=== PATIENT | female | born 2000 | race Caucasian/White ===

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

== ENCOUNTER 2018-12-30 16:30 | Emergency (ER) | payer OTHER ==
[2018-12-30] MEDS ORDERED: SODIUM CHLORIDE 0.9% 1,000 ML IV ONE (18:06)
[2018-12-30] MEDS ORDERED: METOCLOPRAMIDE 5 MG/ML 2 ML VIAL IVP STA (18:07)
[2018-12-30] MEDS ORDERED: SODIUM CHLORIDE 0.9% 500 ML 500 ML IV ONE (18:10)
--- NOTE | 2018-12-30 18:10 | ED ---
Nausea/Vomiting/Diarrhea HPI - General Chief complaint: Nausea/Vomiting/Diarrhea Stated complaint: vomiting/10 wks preg Time Seen by Provider: 12/30/18 17:54 Source: patient Mode of arrival: ambulatory Limitations: no limitations - History of Present Illness Initial comments: 18-year-old female no past medical history with current twin at 10 weeks presenting today for chief complaint of uncontrolled vomiting and stabbing lower pelvic pain. Pt states she has had significant morning sickness since the time she found out she was . Patient states it has been increased for the past day. She states that earlier today she has felt occasional sharp pain in the lower abdomen. No vaginal bleeding, discharge, dysuria urgency frequency hematuria back pain chest pain dyspnea dyspnea on exertion or leg swelling. Upon arrival pt HR elevated remaining VS WNL. - Related Data Home Medications Medication Instructions Recorded Confirmed Ovv-[id number] Acid 1 cap PO DAILY 12/30/18 12/30/18 [-U Capsule (formulary)] Previous Rx's Medication Instructions Recorded Metoclopramide HCl [Reglan] 5 mg PO DAILY PRN 4 Days #4 tablet 12/30/18 Allergies Allergy/AdvReac Type Severity Reaction Status Date / Time coconut AdvReac Nausea Verified 12/30/18 18:19 milk AdvReac Nausea & Verified 12/30/18 18:19 Vomiting & Diarrhea Review of Systems ROS Statement: Those systems with pertinent positive or pertinent negative responses have been documented in the HPI. ROS Other: All systems not noted in ROS Statement are negative. Past Medical History Past Medical History: GERD/Reflux Additional Past Medical History / Comment(s): OB history: This is her first and she started care with Dr Mata at 25 weeks. O+, abs neg, Rub Imm, RPR NR, Hep B neg. abnormal 1hr, normal 3hr GTT. most recent US last week showed baby to be over 10 pounds and AMANDA 27cm. She refused C/S that day but agreed to one being scheduled. History of Any Multi-Drug Resistant Organisms: None Reported Past Surgical History: Section Past Anesthesia/Blood Transfusion Reactions: No Reported Reaction Past Psychological History: No Psychological Hx Reported Smoking Status: Never smoker Past Alcohol Use History: None Reported Past Drug Use History: None Reported - Past Family History Sister(s) Family Medical History: Blood Disorder Additional Family Medical History / Comment(s): Patient's mother states her sister has a history of blood clots-specifics unknown. General Exam - General Exam Comments Initial Comments: General: The patient is awake and alert, in no distress, and does not appear acutely ill. Eye: Pupils are equal, round and reactive to light, extra-ocular movements are intact. No nystagmus. There is normal conjunctiva bilaterally. No signs of icterus. Ears, nose, mouth and throat: There are moist mucous membranes and no oral lesions. Neck: The neck is supple, there is no tenderness or JVD. Cardiovascular: There is a regular rate and rhythm. No murmur, rub or gallop is appreciated. Respiratory: Lungs are clear to auscultation, respirations are non-labored, breath sounds are equal. No wheezes, stridor, rales, or rhonchi. Gastrointestinal: Soft, non-distended, non-tender abdomen without masses or organomegaly noted. There is no rebound or guarding present. No CVA tenderness. Bowel sounds are unremarkable. Musculoskeletal: Normal ROM, no tenderness. Strength 5/5. Sensation intact. Pulses equal bilaterally 2+. Neurological: A&O x 3. CN II-XII intact, There are no obvious motor or sensory deficits. Coordination appears grossly intact. Speech is normal. Skin: Skin is warm and dry and no rashes or lesions are noted. Psychiatric: Cooperative, appropriate mood & affect, normal judgment. Limitations: no limitations Course Vital Signs 12/30/18 17:27 Temperature 98.5 F Pulse Rate 122 H Respiratory 20 Rate Blood Pressure 129/83 O2 Sat by Pulse 98 Oximetry Medical Decision Making - Medical Decision Making 18-year-old female presenting for vomiting and primed after vomiting should sharp pains in her lower abdomen. Patient states this has since subsided. Benign abdominal exam. Patient denies vaginal bleeding. Ultrasound revealed viable intrauterine twin gestation with heart rate within normal limits and no complicating process seen. Pt has +4 ketones in urine. pt given reglan, pt tolerating oral intake in the ER, drinking a full 12 oz and denies nausea. No episodes of emesis. Pt requesting discharge. Pt given 1L of fluid. Pt refuses to stay for total 1500L bolus ordered. I discussed case reviewing labs with attending Dr. Echols who is agreeable with discharge and care plan. She was given prescription for Reglan Fortabs told to be taken daily for nausea. Patient is very strict return parameters for any persistent vomiting or decreased oral intake or decreased urination. She verbalized understanding. Patient discharged. - Lab Data Result diagrams: 12/30/18 18:50 12/30/18 18:50 Lab Results 12/30/18 12/30/18 12/30/18 Range/Units 18:50 18:50 18:50 WBC (4.0-11.0) k/uL RBC (3.80-5.40) m/uL Hgb (11.4-16.0) gm/dL Hct (34.0-46.0) % MCV (80.0-100.0) fL MCH (25.0-35.0) pg MCHC (31.0-37.0) g/dL RDW (11.5-15.5) % Plt Count (150-450) k/uL Neutrophils % % Lymphocytes % % Monocytes % % Eosinophils % % Basophils % % Neutrophils # (1.3-7.7) k/uL Lymphocytes # (1.0-4.8) k/uL Monocytes # (0-1.0) k/uL Eosinophils # (0-0.7) k/uL Basophils # (0-0.2) k/uL Sodium 140 (137-145) mmol/L Potassium 3.9 (3.5-5.1) mmol/L Chloride 108 H (98-107) mmol/L Carbon Dioxide 19 L (22-30) mmol/L Anion Gap 13 mmol/L BUN 8 (7-17) mg/dL Creatinine 0.42 L (0.52-1.04) mg/dL Est GFR (CKD-EPI)AfAm >90 (>60 ml/min/1.73 sqM) Est GFR (CKD-EPI)NonAf >90 (>60 ml/min/1.73 sqM) Glucose 92 (74-99) mg/dL Calcium 9.8 (8.4-10.2) mg/dL Total Bilirubin 0.5 (0.2-1.3) mg/dL AST 15 (14-36) U/L ALT 27 (9-52) U/L Alkaline Phosphatase 108 (38-126) U/L Total Protein 7.4 (6.3-8.2) g/dL Albumin 4.3 (3.5-5.0) g/dL Urine Color Yellow Urine Appearance Clear (Clear) Urine pH 6.0 (5.0-8.0) Ur Specific [place] 1.037 H (1.001-1.035) Urine Protein 1+ H (Negative) Urine Glucose (UA) Negative (Negative) Urine Ketones 4+ H (Negative) Urine Blood Negative (Negative) Urine Nitrite Negative (Negative) Urine Bilirubin Negative (Negative) Urine Urobilinogen 2.0 (<2.0) mg/dL Ur Leukocyte Esterase Negative (Negative) Urine RBC 1 (0-5) /hpf Urine WBC 1 (0-5) /hpf Ur Squamous Epith Cells 1 (0-4) /hpf Urine Bacteria Rare H (None) /hpf Urine Mucus Occasional H (None) /hpf Blood Type O Positive Blood Type Recheck No 12/30/18 Range/Units 18:50 WBC 5.1 (4.0-11.0) k/uL RBC 5.67 H (3.80-5.40) m/uL Hgb 14.4 (11.4-16.0) gm/dL Hct 44.1 (34.0-46.0) % MCV 77.7 L (80.0-100.0) fL MCH 25.4 (25.0-35.0) pg MCHC 32.6 (31.0-37.0) g/dL RDW 15.3 (11.5-15.5) % Plt Count 246 (150-450) k/uL Neutrophils % 63 % Lymphocytes % 29 % Monocytes % 4 % Eosinophils % 1 % Basophils % 0 % Neutrophils # 3.2 (1.3-7.7) k/uL Lymphocytes # 1.5 (1.0-4.8) k/uL Monocytes # 0.2 (0-1.0) k/uL Eosinophils # 0.1 (0-0.7) k/uL Basophils # 0.0 (0-0.2) k/uL Sodium (137-145) mmol/L Potassium (3.5-5.1) mmol/L Chloride (98-107) mmol/L Carbon Dioxide (22-30) mmol/L Anion Gap mmol/L BUN (7-17) mg/dL Creatinine (0.52-1.04) mg/dL Est GFR (CKD-EPI)AfAm (>60 ml/min/1.73 sqM) Est GFR (CKD-EPI)NonAf (>60 ml/min/1.73 sqM) Glucose (74-99) mg/dL Calcium (8.4-10.2) mg/dL Total Bilirubin (0.2-1.3) mg/dL AST (14-36) U/L ALT (9-52) U/L Alkaline Phosphatase (38-126) U/L Total Protein (6.3-8.2) g/dL Albumin (3.5-5.0) g/dL Urine Color Urine Appearance (Clear) Urine pH (5.0-8.0) Ur Specific [place] (1.001-1.035) Urine Protein (Negative) Urine Glucose (UA) (Negative) Urine Ketones (Negative) Urine Blood (Negative) Urine Nitrite (Negative) Urine Bilirubin (Negative) Urine Urobilinogen (<2.0) mg/dL Ur Leukocyte Esterase (Negative) Urine RBC (0-5) /hpf Urine WBC (0-5) /hpf Ur Squamous Epith Cells (0-4) /hpf Urine Bacteria (None) /hpf Urine Mucus (None) /hpf Blood Type Blood Type Recheck Disposition Clinical Impression: Vomiting during , Dehydration Disposition: HOME SELF-CARE Condition: Good Instructions (If sedation given, give patient instructions): Nausea and Vomiting in (ED) Additional Instructions: Please follow-up with OBGYN next week as scheduled. Please return to emergency room if the symptoms increase or worsen or for any other concerns. Prescriptions: Metoclopramide HCl [Reglan] 5 mg PO DAILY PRN 4 Days #4 tablet PRN Reason: Nausea Is patient prescribed a controlled substance at d/c from ED?: No Referrals: None,Stated [Primary Care Provider] - 1-2 days Ghassan Mata DO [Doctor of Osteopathic Medicine] - 1-2 days Time of Disposition: 20:02
[2018-12-30 19:05] LABS: Basophils % (A) 0 %; Eosinophils # (A) 0.1 k/uL (0-0.7); Eosinophils % (A) 1 %; HCT 44.1 % (34.0-46.0); HGB 14.4 gm/dL (11.4-16.0); Lymphocytes # (A) 1.5 k/uL (1.0-4.8); Lymphocytes % (A) 29 %; MCH 25.4 pg (25.0-35.0); MCHC 32.6 g/dL (31.0-37.0); MCV 77.7 fL (80.0-100.0); Mean Platelet Volume 7.7; Monocytes # (A) 0.2 k/uL (0-1.0); Monocytes % (A) 4 %; Neutrophils # (A) 3.2 k/uL (1.3-7.7); Neutrophils % (A) 63 %; Platelet Count 246 k/uL (150-450); RBC 5.67 m/uL (3.80-5.40); RDW 15.3 % (11.5-15.5); WBC 5.1 k/uL (4.0-11.0)
[2018-12-30 19:07] LABS: Appearance,Urine Clear (Clear); Bacteria,Urine Rare /hpf; Bilirubin,Urine Negative (Negative); Blood,Urine Negative (Negative); Color,Urine Yellow; Glucose,Urine (UA) Negative (Negative); Ketones,Urine 4+ (Negative); Leukocyte Esterase,Urine Negative (Negative); Mucus,Urine Occasional /hpf; Nitrite,Urine Negative (Negative); Protein,Urine 1+ (Negative); RBC,Urine 1 /hpf (0-5); Specific Gravity,Urine 1.037 (1.001-1.035); Squamous Epithelial Cell,Urine 1 /hpf (0-4); WBC,Urine 1 /hpf (0-5)
[2018-12-30 19:10] LABS: ALT 27 U/L (9-52); AST 15 U/L (14-36); Albumin 4.3 g/dL (3.5-5.0); Alkaline Phosphatase 108 U/L (38-126); Anion Gap 13 mmol/L; Blood Urea Nitrogen 8 mg/dL (7-17); Calcium 9.8 mg/dL (8.4-10.2); Carbon Dioxide 19 mmol/L (22-30); Chloride 108 mmol/L (98-107); Glucose 92 mg/dL (74-99); Potassium 3.9 mmol/L (3.5-5.1); Sodium 140 mmol/L (137-145); Total Bilirubin 0.5 mg/dL (0.2-1.3); Total Protein 7.4 g/dL (6.3-8.2)
--- NOTE | 2018-12-30 19:46 | US ---
EXAMINATION TYPE: US OB <= 14 wk twins DATE OF EXAM: 12/30/2018 COMPARISON: NONE CLINICAL HISTORY: pain. Vomiting. EXAM PERFORMED: Transabdominal (TA) EXAM MEASUREMENTS: GESTATIONAL AGE / DATING Physician Established: (10 weeks/3 days) EDC: 07/25/2019 Dates by LMP: (10 weeks/3 days) EDC: 07/25/2019 Dates by First Scan: No previous this is first scan Dates by Current Scan for Baby A: (10 weeks/0 days) EDC: 07/28/2019 Dates by Current Scan for Baby B: ( 9 weeks/6 days) EDC: 07/29/2019 MATERNAL ANATOMY Uterus: 12.1 x 6.2 x 8.0 cm Right Ovary: 3.3 x 1.6 x 2.3 cm Left Ovary: 2.2 x 1.3 x 2.0 cm Post CDS / Adnexa: wnl Presence of free fluid: no Presence of corpus luteal cyst: no Presence of subchorionic bleed: no Presence of two separate gestational sacs: yes GESTATION / SURVEY TWIN A CRL: 3.12cm (10wks/0days) Yolk Sac (normal less than 6mm): 4mm Heart Rate: 176 bpm Rhythm: Normal IUP: Viable IUP TWIN B CRL: 3.0cm 9(wks/6days) Heart Rate: 165 bpm Rhythm: Normal IUP: Viable IUP IMPRESSION: The ultrasound gestational age is 10 weeks. Twin . No complicating process seen. There is a thick septum the fetuses.
[2018-12-30 20:59] VITALS: BP 122/80; PULSE 96; RESP 18; TEMP 98.1
== END 2018-12-30 20:58 | disposition home or self-care (01) ==
LOC: EC 16:30
DX: O21.9 Vomiting of pregnancy, unspecified (principal); O99.281 Endocrine, nutritional and metabolic diseases complicating pregnancy, first trimester; O30.001 Twin pregnancy, unspecified number of placenta and unspecified number of amniotic sacs, first trimester; Z91.011 Allergy to milk products; Z91.018 Allergy to other foods; Z3A.10 10 weeks gestation of pregnancy
CPT/HCPCS: 36415; 86900; 86901; 80053; 85025; 81001; 84702; 76801; 76802; 99284; 96374; 96361; J2765

== ENCOUNTER → 2019-02-01 | Outpatient (CLI) | payer OTHER ==
[2019-02-01 15:52] LABS: Hemoglobin A1C 5.3 % (4.0-6.0)
== END | disposition home or self-care (01) ==
LOC: LABWHC1 09:54
PROVIDERS: ATTEND Obstetrics & Gynecology
DX: O24.419 Gestational diabetes mellitus in pregnancy, unspecified control (principal); Z3A.00 Weeks of gestation of pregnancy not specified
CPT/HCPCS: 36415; 82950; 83036

== ENCOUNTER 2019-04-15 13:51 | Outpatient (CLI) | payer OTHER ==
[2019-04-15 14:58] VITALS: BP 130/66; PULSE 99; RESP 16; TEMP 98.1
--- NOTE | 2019-04-27 08:42 | P.MSEPDOC ---
Presenting Problems - Arrival Data Date of Arrival on Unit: 04/15/19 Time of Arrival on Unit: 14:51 Mode of Transport: Ambulatory - Complaint OB-Reason for Admission/Chief Complaint: Other Comment: dull pain scale of 2 Medical History - Information : 2 Para: 1 Term: 1 : 1 Abortions: Spontaneous or Elective: 0 Number of Living Children: 1 - History Complications: Multiple Review of Systems - Review of Systems Constitutional: No problems Breast: No problems ENT: No problems Cardiovascular: No problems Respiratory: No problems Gastrointestinal: No problems Genitourinary: No problems Musculoskeletal: No problems Neurological: No problems Skin: No problems Vital Signs - Temperature Temperature: 98.1 F Temperature Source: Oral - Pulse Apical Pulse Rate: 99 Pulse Assessment Method: Auscultation - Respirations Respiratory Rate: 16 Oxygen Delivery Method: Room Air - Blood Pressure Left Arm Blood Pressure: 130/66 Blood Pressure Mean: 87 Blood Pressure Source: Automatic Cuff Medical Screen Scoring (Pre) - Cervical Exam Dilation: Exam Deferred Effacement: Exam Deferred Membranes: Intact - Uterine Contractions Frequency: N/A - Maternal Vital Signs Maternal Temperature: N/A Maternal Blood Pressure: N/A Signs of Preeclampsia: N/A Maternal Respirations: N/A - Maternal Trauma Maternal Trauma: N/A - Assessment - Baby A Baseline FHR: 140 Heart Rate - NICHD Category: Category I (Normal) = 0 - Assessment - Baby B Baseline FHR: 150 Heart Rate - NICHD Category: Category I (Normal) = 0 - Total Score - Baby A Total Score - Baby A: 0 - Total Score - Baby B Total Score - Baby B: 0 - Total Score - Baby C Total Score - Baby C: 0 - Level of Risk - Baby A Level of Risk - Baby A: Low (0-5) - Level of Risk - Baby B Level of Risk - Baby B: Low (0-5) - Level of Risk - Baby C Level of Risk - Baby C: Low (0-5) Physician Notification (Pre) - Physician Notified Physician Notified Date: 04/15/19 Physician Notified Time: 14:55 Physician/Practitioner Notifed:: dr pinzon New Order Received: Yes (pt to discharge home) - Notification Comment Comment: PT ASKING IF SHE CAN GO BOWLING TONIGHT ASKED DOCTOR. PT IS NOT TO BOWL IF SHE IS HAVING PAIN Disposition - Disposition OB Disposition: Discharge to home Discharge Date: 04/15/19 Discharge Time: 14:57 I agree with the RN Medical Screening Exam: Yes Risk & Benefit of care provided described in d/c instruction: Yes Diagnosis: RELATED CONDITIONS, UNSPECIFIED, SECOND TRIMESTER
== END 2019-04-15 14:58 | disposition home or self-care (01) ==
LOC: FBPOP 13:51
PROVIDERS: ATTEND Obstetrics & Gynecology
DX: O26.92 Pregnancy related conditions, unspecified, second trimester (principal); Z3A.00 Weeks of gestation of pregnancy not specified
CPT/HCPCS: 99213

== ENCOUNTER 2019-05-30 12:15 | Outpatient (CLI) | payer OTHER | END 2019-05-30 12:55 | disposition home or self-care (01) | LOC: FBPOP 12:15 | PROVIDERS: ATTEND Obstetrics & Gynecology | DX: O30.003 Twin pregnancy, unspecified number of placenta and unspecified number of amniotic sacs, third trimester (principal); Z3A.32 32 weeks gestation of pregnancy | CPT/HCPCS: 99213 ==

== ENCOUNTER 2019-06-07 18:00 | Outpatient (CLI) | payer OTHER ==
[2019-06-07 19:26] VITALS: BP 131/71; PULSE 112; RESP 15; TEMP 97
--- NOTE | 2019-06-07 20:20 | P.MSEPDOC ---
Presenting Problems - Arrival Data Date of Arrival on Unit: 06/07/19 Time of Arrival on Unit: 18:00 Mode of Transport: Ambulatory - Complaint OB-Reason for Admission/Chief Complaint: NST Medical History - Information : 2 Para: 1 Term: 1 : 0 Abortions: Spontaneous or Elective: 0 Number of Living Children: 1 - Gestational Age Gestational Age by ILSA (wks/days): 33 Weeks and 1 Days - History Complications: Multiple Review of Systems - Review of Systems Constitutional: No problems Breast: No problems ENT: No problems Cardiovascular: No problems Respiratory: No problems Gastrointestinal: No problems Genitourinary: No problems Musculoskeletal: No problems Neurological: No problems Skin: No problems Vital Signs - Temperature Temperature: 97 F Temperature Source: Temporal Artery Scan - Pulse Brachial Pulse Rate: 112 Pulse Assessment Method: Automatic Cuff - Respirations Respiratory Rate: 15 Oxygen Delivery Method: Room Air - Blood Pressure Right Arm Sitting Blood Pressure: 131/71 Blood Pressure Mean: 91 Blood Pressure Source: Automatic Cuff Medical Screen Scoring (Pre) - Cervical Exam Dilation: 0 cm = 0 Membranes: Intact - Uterine Contractions Frequency: > 5 minutes apart = 1 Duration: > 40 seconds = 2 Intensity: N/A - Maternal Vital Signs Maternal Temperature: N/A Maternal Blood Pressure: N/A Signs of Preeclampsia: N/A Maternal Respirations: N/A - Maternal Trauma Maternal Trauma: N/A - Assessment - Baby A Baseline FHR: 145 Heart Rate - NICHD Category: Category I (Normal) = 0 NST: Reactive Position: N/A Station: N/A - Total Score - Baby A Total Score - Baby A: 3 - Total Score - Baby B Total Score - Baby B: 3 - Total Score - Baby C Total Score - Baby C: 3 - Level of Risk - Baby A Level of Risk - Baby A: Low (0-5) - Level of Risk - Baby B Level of Risk - Baby B: Low (0-5) - Level of Risk - Baby C Level of Risk - Baby C: Low (0-5) Physician Notification (Pre) - Physician Notified Physician Notified Date: 06/07/19 Physician Notified Time: 19:10 Spoke With: Dr Roberts New Order Received: Yes - Notification Comment Comment: reported reactive NST for Baby A and Baby B, pt is having contx. orders received to collect FFN and check cervix per t.oHero Roberts. pt is passed off to. Winston Garcia RN for care I agree with the RN Medical Screening Exam: Yes Risk & Benefit of care provided described in d/c instruction: Yes Diagnosis: LABOR WITHOUT DELIVERY, UNSPECIFIED TRIMESTER (This patient presented to labor and delivery triage for a weekly nonstress test. Patient is having a nonstress test for twin gestation. Evaluation here shows a reactive nonstress test however patient was having contractions which were not perceivable to the patient. Cervix is closed. fibronectin is pending at this time. Was prolonged observation patient is having infrequent contractions which she does not perceive. Plan at this time's check a fibronectin. If the fibronectin is negative patient be discharged home she does have a follow-up appointment tomorrow with Dr. Patricio. She was given directions to call or return if she has greater than 6 painful contractions and hour, decreased movement, or other concerns. At this time there is no evidence of labor.)
== END 2019-06-07 20:30 | disposition home or self-care (01) ==
LOC: FBPOP 18:00
PROVIDERS: ATTEND Obstetrics & Gynecology
DX: O60.03 Preterm labor without delivery, third trimester (principal); Z3A.33 33 weeks gestation of pregnancy
CPT/HCPCS: 59025; 82731; G0463; 99213

== ENCOUNTER 2019-06-15 11:55 | Outpatient (CLI) | payer OTHER ==
[2019-06-15 16:32] VITALS: BP 121/68; PULSE 106; RESP 16; TEMP 98.5
--- NOTE | 2019-06-18 12:05 | P.MSEPDOC ---
Presenting Problems - Arrival Data Date of Arrival on Unit: 06/15/19 Time of Arrival on Unit: 11:55 Mode of Transport: Ambulatory - Complaint OB-Reason for Admission/Chief Complaint: NST Comment: presents to triage with papter order for Twin NST (O30) after being seen in office. This is. the first of the Bi Weekly Nst's Medical History - Information : 2 Para: 1 Term: 1 : 0 Abortions: Spontaneous or Elective: 0 Number of Living Children: 1 - Gestational Age Gestational Age by ILSA (wks/days): 34 Weeks and 2 Days - History Complications: Multiple Review of Systems - Review of Systems Constitutional: No problems Breast: No problems ENT: No problems Cardiovascular: No problems Respiratory: No problems Gastrointestinal: No problems Genitourinary: No problems Musculoskeletal: No problems Neurological: No problems Skin: No problems Vital Signs - Temperature Temperature: 98.5 F Temperature Source: Oral - Pulse Right Pulse Rate: 106 Pulse Assessment Method: Automatic Cuff - Respirations Respiratory Rate: 16 Oxygen Delivery Method: Room Air O2 Sat by Pulse Oximetry: 98 - Blood Pressure Right Arm Blood Pressure: 121/68 Blood Pressure Mean: 85 Blood Pressure Source: Automatic Cuff Medical Screen Scoring (Pre) - Cervical Exam Dilation: Exam Deferred Effacement: Exam Deferred - Uterine Contractions Frequency: N/A Duration: N/A Intensity: N/A - Maternal Vital Signs Maternal Temperature: N/A Maternal Blood Pressure: N/A Signs of Preeclampsia: N/A Maternal Respirations: N/A - Maternal Trauma Maternal Trauma: N/A - Assessment - Baby A Baseline FHR: 150 Heart Rate - NICHD Category: Category I (Normal) = 0 NST: Reactive Position: N/A Station: N/A - Assessment - Baby B Baseline FHR: 155 Heart Rate - NICHD Category: Category I (Normal) = 0 NST: Reactive Position: N/A Station: N/A - Total Score - Baby A Total Score - Baby A: 0 - Total Score - Baby B Total Score - Baby B: 0 - Total Score - Baby C Total Score - Baby C: 0 - Level of Risk - Baby A Level of Risk - Baby A: Low (0-5) - Level of Risk - Baby B Level of Risk - Baby B: Low (0-5) - Level of Risk - Baby C Level of Risk - Baby C: Low (0-5) - Pain Assessment Pain Scale Used: Numeric (1 - 10) Pain Intensity: 0 Physician Notification (Pre) - Physician Notified Physician Notified Date: 06/15/19 Physician Notified Time: 13:05 Physician/Practitioner Notifed:: Dr Mata Spoke With: Dr Mata New Order Received: Yes (Discharge) - Notification Comment Comment: Dr Mata in department, shown efm. notified both babies' NSTs are reactive. and both are Cat !. Pt has no complaints. order for discharge received Disposition - Disposition OB Disposition: Discharge to home Discharge Date: 06/15/19 Discharge Time: 13:05 I agree with the RN Medical Screening Exam: Yes Risk & Benefit of care provided described in d/c instruction: Yes Diagnosis: RELATED CONDITIONS, UNSPECIFIED, THIRD TRIMESTER (twins)
== END 2019-06-15 13:05 | disposition home or self-care (01) ==
LOC: FBPOP 11:55
PROVIDERS: ATTEND Obstetrics & Gynecology
DX: O26.93 Pregnancy related conditions, unspecified, third trimester (principal); O30.003 Twin pregnancy, unspecified number of placenta and unspecified number of amniotic sacs, third trimester; Z3A.34 34 weeks gestation of pregnancy
CPT/HCPCS: 59025

== ENCOUNTER 2019-06-23 10:53 | Outpatient (CLI) | payer OTHER ==
[2019-06-23 12:14] VITALS: BP 128/65; PULSE 109; RESP 18; TEMP 97.3
== END 2019-06-23 11:50 | disposition home or self-care (01) ==
LOC: FBPOP 10:53
PROVIDERS: ATTEND Obstetrics & Gynecology
DX: O30.009 Twin pregnancy, unspecified number of placenta and unspecified number of amniotic sacs, unspecified trimester (principal); Z3A.00 Weeks of gestation of pregnancy not specified
CPT/HCPCS: 59025

== ENCOUNTER 2019-06-27 11:35 | Outpatient (CLI) | payer OTHER ==
[2019-06-27 13:53] VITALS: BP 119/69; PULSE 110; RESP 18; TEMP 98.4
--- NOTE | 2019-06-27 18:35 | P.MSEPDOC ---
Presenting Problems - Arrival Data Date of Arrival on Unit: 06/27/19 Time of Arrival on Unit: 11:30 Mode of Transport: Ambulatory - Complaint OB-Reason for Admission/Chief Complaint: NST Comment: twin gestation for repeat nst biweekly. Medical History - Information : 2 Para: 1 Term: 1 : 0 Abortions: Spontaneous or Elective: 0 Number of Living Children: 1 - Gestational Age Gestational Age by ILSA (wks/days): 35 Weeks and 6 Days - History Complications: Multiple Review of Systems - Review of Systems Constitutional: No problems Breast: No problems ENT: No problems Cardiovascular: No problems Respiratory: No problems Gastrointestinal: No problems Genitourinary: No problems Musculoskeletal: No problems Neurological: No problems Skin: No problems Vital Signs - Temperature Temperature: 98.4 F Temperature Source: Oral - Pulse Right Brachial Pulse Rate: 110 Pulse Assessment Method: Automatic Cuff - Respirations Respiratory Rate: 18 Oxygen Delivery Method: Room Air O2 Sat by Pulse Oximetry: 100 - Blood Pressure Right Arm Blood Pressure: 119/69 Blood Pressure Mean: 85 Blood Pressure Source: Automatic Cuff Medical Screen Scoring (Pre) - Cervical Exam Dilation: Exam Deferred Effacement: Exam Deferred - Uterine Contractions Frequency: N/A Duration: N/A Intensity: N/A - Maternal Vital Signs Maternal Temperature: N/A Maternal Blood Pressure: N/A Signs of Preeclampsia: N/A Maternal Respirations: N/A - Maternal Trauma Maternal Trauma: N/A - Assessment - Baby A Baseline FHR: 145 Heart Rate - NICHD Category: Category I (Normal) = 0 NST: Reactive Position: N/A Station: N/A - Assessment - Baby B Baseline FHR: 150 Heart Rate - NICHD Category: Category I (Normal) = 0 NST: Reactive Position: N/A Station: N/A - Total Score - Baby A Total Score - Baby A: 0 - Total Score - Baby B Total Score - Baby B: 0 - Total Score - Baby C Total Score - Baby C: 0 - Level of Risk - Baby A Level of Risk - Baby A: Low (0-5) - Level of Risk - Baby B Level of Risk - Baby B: Low (0-5) - Level of Risk - Baby C Level of Risk - Baby C: Low (0-5) Physician Notification (Pre) - Physician Notified Spoke With: elsie New Order Received: Yes - Notification Comment Comment: discharge home. keep next sched appt for nst and with dr at office. verb underst Disposition - Disposition OB Disposition: Discharge to home Discharge Date: 06/27/19 Discharge Time: 13:10 I agree with the RN Medical Screening Exam: Yes Risk & Benefit of care provided described in d/c instruction: Yes Diagnosis: TWIN , DICHORIONIC/DIAMNIOTIC, THIRD TRIMESTER
== END 2019-06-27 13:10 | disposition home or self-care (01) ==
LOC: FBPOP 11:35
PROVIDERS: ATTEND Obstetrics & Gynecology
DX: O30.043 Twin pregnancy, dichorionic/diamniotic, third trimester (principal); Z3A.35 35 weeks gestation of pregnancy
CPT/HCPCS: 59025

== ENCOUNTER 2019-06-29 17:33 | Outpatient (CLI) | payer OTHER ==
[2019-06-29 18:43] VITALS: BP 134/78; PULSE 110; RESP 16; TEMP 97.5
--- NOTE | 2019-06-29 18:59 | P.MSEPDOC ---
Presenting Problems - Arrival Data Date of Arrival on Unit: 06/29/19 Time of Arrival on Unit: 17:33 Mode of Transport: Ambulatory - Complaint OB-Reason for Admission/Chief Complaint: Possible Onset of Labor Comment: Contractions q8-12min apart for several days Medical History - Information : 2 Para: 1 Term: 1 : 0 Abortions: Spontaneous or Elective: 0 Number of Living Children: 1 - Gestational Age Gestational Age by ILSA (wks/days): 36 Weeks and 2 Days - History Complications: Multiple , Prior Review of Systems - Review of Systems Constitutional: No problems Breast: No problems ENT: No problems Cardiovascular: No problems Respiratory: No problems Gastrointestinal: No problems Genitourinary: No problems Musculoskeletal: No problems Neurological: No problems Skin: No problems Vital Signs - Temperature Temperature: 97.5 F Temperature Source: Temporal Artery Scan - Pulse Right Sitting Brachial Pulse Rate: 110 Pulse Assessment Method: Pulse Oximetry - Respirations Respiratory Rate: 16 Oxygen Delivery Method: Room Air O2 Sat by Pulse Oximetry: 99 - Blood Pressure Right Arm Sitting Blood Pressure: 134/78 Blood Pressure Mean: 96 Blood Pressure Source: Automatic Cuff Medical Screen Scoring (Pre) - Cervical Exam Dilation: 0 cm = 0 Membranes: Intact - Uterine Contractions Frequency: > 5 minutes apart = 1 Duration: > 40 seconds = 2 Intensity: N/A - Maternal Vital Signs Maternal Temperature: N/A Maternal Blood Pressure: N/A Signs of Preeclampsia: N/A Maternal Respirations: N/A - Maternal Trauma Maternal Trauma: N/A - Assessment - Baby A Baseline FHR: 150 Heart Rate - NICHD Category: Category I (Normal) = 0 NST: Reactive Position: N/A Station: N/A - Assessment - Baby B Baseline FHR: 140 Heart Rate - NICHD Category: Category I (Normal) = 0 NST: Reactive Position: N/A Station: N/A - Total Score - Baby A Total Score - Baby A: 3 - Total Score - Baby B Total Score - Baby B: 3 - Total Score - Baby C Total Score - Baby C: 3 - Level of Risk - Baby A Level of Risk - Baby A: Low (0-5) - Level of Risk - Baby B Level of Risk - Baby B: Low (0-5) - Level of Risk - Baby C Level of Risk - Baby C: Low (0-5) Physician Notification (Pre) - Physician Notified Physician Notified Date: 06/29/19 Physician Notified Time: 17:55 Physician/Practitioner Notifed:: Armando Spoke With: Armando New Order Received: Yes - Notification Comment Comment: Pt of Dr. Wilkinson, twin preg; , 36 2/7, c/o contractions x 3 days, q8-12min apart, not painful, SVE closed, reactive NST; scheduled for r c/s 07/06/19. Pt to be d/c home, triage d/c reviewed with pt and SO. Disposition - Disposition OB Disposition: Triage, Discharge to home, Written follow up instructions reviewed Discharge Date: 06/29/19 Discharge Time: 18:45 I agree with the RN Medical Screening Exam: Yes Risk & Benefit of care provided described in d/c instruction: Yes Diagnosis: FALSE LABOR BEFORE 37 COMPLETED WEEKS OF GEST, THIRD TRI (This patient is a pleasant 18-year-old 2 para 1 female 36-2/7 weeks gestation with known twin . Patient presents to labor and delivery with complaints of a headache. brought her and due to these concerns. She's had no blood pressure problems during this . She's been getting regular nonstress tests for testing. Patient scheduled for repeat section next week. Patient also having contractions but these are sporadic immigrant on for quite a while. heart tones are reactive without decelerations. Cervix is closed and thick. Blood pressures are normal. At thi s time there is no evidence of maternal or compromise. There is no evidence of hypertension. Patient is having good movement 2. At this point I have no concerns. I did recommend the patient return if she has regular painful contractions or concerns with movement, etc.)
== END 2019-06-29 18:45 | disposition home or self-care (01) ==
LOC: FBPOP 17:33
PROVIDERS: ATTEND Obstetrics & Gynecology
DX: O47.03 False labor before 37 completed weeks of gestation, third trimester (principal); Z3A.36 36 weeks gestation of pregnancy
CPT/HCPCS: 59025; G0463; 99213

== ENCOUNTER 2019-07-01 14:29 | Outpatient (CLI) | payer OTHER ==
[2019-07-01 15:51] VITALS: BP 130/76; PULSE 126; RESP 18; TEMP 97.9
--- NOTE | 2019-07-12 03:52 | P.MSEPDOC ---
Presenting Problems - Arrival Data Date of Arrival on Unit: 07/01/19 Time of Arrival on Unit: 14:32 Mode of Transport: Wheelchair - Complaint OB-Reason for Admission/Chief Complaint: Headache Comment: right side pain, headache, lightheaded. Medical History - Information : 2 Para: 1 Term: 1 : 0 Abortions: Spontaneous or Elective: 0 Number of Living Children: 1 - Gestational Age Gestational Age by ILSA (wks/days): 36 Weeks and 4 Days - History Complications: Multiple , Breech Review of Systems - Review of Systems Constitutional: No problems Breast: No problems ENT: No problems Cardiovascular: No problems Respiratory: No problems Gastrointestinal: No problems Genitourinary: No problems Musculoskeletal: No problems Neurological: No problems Skin: No problems Vital Signs - Temperature Temperature: 97.9 F Temperature Source: Temporal Artery Scan - Pulse Right Sitting Brachial Pulse Rate: 126 Pulse Assessment Method: Automatic Cuff - Respirations Respiratory Rate: 18 Oxygen Delivery Method: Room Air - Blood Pressure Right Arm Sitting Blood Pressure: 130/76 Blood Pressure Mean: 94 Blood Pressure Source: Automatic Cuff Medical Screen Scoring (Pre) - Cervical Exam Dilation: Exam Deferred Effacement: Exam Deferred - Uterine Contractions Frequency: > 5 minutes apart = 1 Duration: > 40 seconds = 2 Intensity: N/A - Maternal Vital Signs Maternal Temperature: N/A Maternal Blood Pressure: N/A Signs of Preeclampsia: Headache = 1 Maternal Respirations: N/A - Maternal Trauma Maternal Trauma: N/A - Assessment - Baby A Baseline FHR: 135 Heart Rate - NICHD Category: Category I (Normal) = 0 NST: Reactive Position: N/A Station: N/A - Assessment - Baby B Baseline FHR: 140 Heart Rate - NICHD Category: Category I (Normal) = 0 NST: Reactive Position: N/A Station: N/A - Total Score - Baby A Total Score - Baby A: 4 - Total Score - Baby B Total Score - Baby B: 4 - Total Score - Baby C Total Score - Baby C: 4 - Level of Risk - Baby A Level of Risk - Baby A: Low (0-5) - Level of Risk - Baby B Level of Risk - Baby B: Low (0-5) - Level of Risk - Baby C Level of Risk - Baby C: Low (0-5) Physician Notification (Pre) - Physician Notified Physician Notified Date: 07/01/19 Physician Notified Time: 15:45 New Order Received: Yes - Notification Comment Comment: dc home. follow up with dr Mata as scheduled. Disposition - Disposition OB Disposition: Discharge to home Discharge Date: 07/01/19 Discharge Time: 15:45 I agree with the RN Medical Screening Exam: Yes Physician's MSE Comment: Pt did not have elevated or low blood pressure. FHTs were category 1. She had not taken tylenol so that was suggested. Risk & Benefit of care provided described in d/c instruction: Yes Diagnosis: HEADACHE
== END 2019-07-01 15:52 | disposition home or self-care (01) ==
LOC: FBPOP 14:29
PROVIDERS: ATTEND Obstetrics & Gynecology
DX: R51 Headache (principal); Z33.1 Pregnant state, incidental; Z3A.36 36 weeks gestation of pregnancy
CPT/HCPCS: 59025; G0463; 99213

== ENCOUNTER 2019-07-06 09:48 | Inpatient (IN) | payer OTHER ==
[2019-07-06] MEDS ORDERED: OXYTOCIN 10 UNIT/ML 1 ML VIAL IM PRN (09:59)
[2019-07-06] MEDS ORDERED: TERBUTALINE 1 MG/ML VIAL SQ PRN (09:59)
[2019-07-06] MEDS ORDERED: CITRIC ACID-SODIUM CITRATE 15 ML CUP PO ONE (10:01)
[2019-07-06 10:16] VITALS: BMI 35.6
[2019-07-06] MEDS: LACTATED RINGERS 1,000 ML IV SCH ×2 (10:19→17:17)
[2019-07-06 10:22] LABS: Anisocytosis Slight; Basophils # (A) 0.1 k/uL (0-0.2); Basophils % (A) 1 %; Eosinophils # (A) 0.1 k/uL (0-0.7); Eosinophils % (A) 1 %; HCT 28.9 % (34.0-46.0); HGB 9.1 gm/dL (11.4-16.0); Hypochromasia Marked; Lymphocytes # (A) 2.1 k/uL (1.0-4.8); Lymphocytes % (A) 31 %; MCH 21.5 pg (25.0-35.0); MCHC 31.6 g/dL (31.0-37.0); MCV 68.1 fL (80.0-100.0); Mean Platelet Volume 8.1; Microcytosis Marked; Monocytes # (A) 0.3 k/uL (0-1.0); Monocytes % (A) 4 %; Neutrophils # (A) 4.1 k/uL (1.3-7.7); Neutrophils % (A) 61 %; Platelet Count 258 k/uL (150-450); Poikilocytosis Marked; RBC 4.25 m/uL (3.80-5.40); RDW 16.9 % (11.5-15.5); WBC 6.7 k/uL (4.0-11.0)
[2019-07-06] MEDS ORDERED: MORPHINE SULFATE (PF) 0.3 MG/0.3 ML SYR ONE (12:34)
[2019-07-06] MEDS ORDERED: OXYTOCIN 10 UNIT/ML 1 ML VIAL ONE (12:34)
[2019-07-06] MEDS ORDERED: NALBUPHINE 10 MG/ML (1 ML AMP) ONE (12:34)
[2019-07-06] MEDS ORDERED: KETOROLAC 30 MG/ML 1 ML VIAL ONE (12:34)
[2019-07-06] MEDS ORDERED: diphenhydrAMINE 50 MG/ML 1 ML VIAL IVP PRN ×3 (13:12→13:28)
[2019-07-06] MEDS ORDERED: ONDANSETRON 4 MG/2 ML VIAL IVP PRN ×2 (13:12→13:28)
[2019-07-06] MEDS ORDERED: HYDROmorphone 0.5 MG/0.5 ML SYRINGE IVP PRN (13:12)
[2019-07-06] MEDS ORDERED: NALOXONE 0.4 MG/ML 1 ML VIAL IV PRN ×2 (13:12→13:28)
[2019-07-06] MEDS ORDERED: ZOLPIDEM 5 MG TAB PO PRN (13:28)
[2019-07-06] MEDS ORDERED: diphenhydrAMINE 50 MG CAP PO PRN (13:28)
[2019-07-06] MEDS ORDERED: METOCLOPRAMIDE 5 MG/ML 2 ML VIAL IVP PRN (13:28)
[2019-07-06] MEDS ORDERED: ACETAMINOPHEN TAB 325 MG TAB PO PRN (13:28)
[2019-07-06] MEDS ORDERED: diphenhydrAMINE 25 MG CAP PO PRN (13:28)
[2019-07-06] MEDS ORDERED: LACTATED RINGERS 1,000 ML IV SCH (13:30)
--- NOTE | 2019-07-06 13:31 | P.HPOB ---
History of Present Illness H&P Date: 07/06/19 Chief Complaint: Intrauterine at term: Twins: Prior section Patient is a 18-year-old at 37 weeks gestation who arrives for repeat low transverse section due to twins. Baby A is noted be breech on last ultrasound and baby B was transverse. Patient's Precis course generally speaking has been unremarkable and the majority the was done without maternal medicine assistance. She did however see maternal medicine late in the due to questionable size discrepancy between baby A and baby B, however on maternal- medicine was reassuring and felt that the growth was adequate. She is scheduled for repeat section. Risks/benefits/alternatives were reviewed with the patient in detail and all questions were answered for her prior to proceeding to the operative room. Plan will be to have nursery personnel and dipper and drier present at the delivery. Category 1 tracing is noted prior to proceeding to the operative room and she is noted to be having some contractions that she is feeling on the monitor. Past Medical History Past Medical History: GERD/Reflux Additional Past Medical History / Comment(s): OB history: This is her first and she started care with Dr Mata at 25 weeks. O+, abs neg, Rub Imm, RPR NR, Hep B neg. abnormal 1hr, normal 3hr GTT. most recent US last week showed baby to be over 10 pounds and AMANDA 27cm. She refused C/S that day but agreed to one being scheduled. History of Any Multi-Drug Resistant Organisms: None Reported Past Surgical History: Section Past Anesthesia/Blood Transfusion Reactions: No Reported Reaction Past Psychological History: No Psychological Hx Reported Smoking Status: Never smoker Past Alcohol Use History: None Reported Past Drug Use History: None Reported - Past Family History Sister(s) Family Medical History: Blood Disorder Additional Family Medical History / Comment(s): Patient's mother states her sister has a history of blood clots-specifics unknown. Medications and Allergies Home Medications Medication Instructions Recorded Confirmed Type Rup-Vfno-Yonmh Acid 1 cap PO DAILY MDD 1 12/30/18 07/01/19 History [-U Capsule (formulary)] Allergies Allergy/AdvReac Type Severity Reaction Status Date / Time coconut AdvReac Nausea Verified 07/01/19 14:52 milk AdvReac Nausea & Verified 07/01/19 14:52 Vomiting & Diarrhea Exam Osteopathic Statement: *. No significant issues noted on an osteopathic structural exam other than those noted in the History and Physical/Consult. Vital Signs Temp Pulse Resp BP Pulse Ox 07/06/19 13:21 97.2 F L 82 16 111/67 100 07/06/19 10:04 97.8 F 125 H 16 127/84 Intake and Output 07/05/19 07/06/19 07/06/19 22:59 06:59 14:59 Other: Voiding Method Indwelling Catheter Weight 103.419 kg - OBG Physical Exam Breast: both: normal (no masses) Abdomen: bowel sounds normal, no diffuse tenderness, no bruit present, no guarding noted, no hepatomegaly, no splenomegaly, no mass Vulva: both: normal Vagina: normal moisture, no discharge Cervix: no lesion, no discharge Uterus: normal size, normal contour Adnexa: both: normal Anus/Rectum: normal perianal skin, no rectal mass, no hemorrhoids, heme negative Results Result Diagrams: 07/06/19 10:05 Abnormal Lab Results - Last 24 Hours (Table) 07/06/19 Range/Units 10:05 Hgb 9.1 L (11.4-16.0) gm/dL Hct 28.9 L (34.0-46.0) % MCV 68.1 L (80.0-100.0) fL MCH 21.5 L (25.0-35.0) pg RDW 16.9 H (11.5-15.5) %
--- NOTE | 2019-07-06 13:35 | P.OP ---
Date of Procedure: 07/06/19 Preoperative Diagnosis: Intrauterine at term: Twin gestation: Prior section: Breech presentation Postoperative Diagnosis: Same Procedure(s) Performed: Repeat low transverse section Anesthesia: spinal Surgeon: Ghassan Mata Blow Torch Burner #1: Willy Roberts Estimated Blood Loss (ml): 800 IV fluids (ml): 500 Urine output (ml): 100 Pathology: other (Placenta) Condition: stable Disposition: floor Operative Findings: Twin babies both taken to special care for observation baby A boy, baby B girl Description of Procedure: Patient was taken to the operating suite where a spinal anesthetic was found be adequate. She was prepped and draped in normal sterile fashion and placed in dorsal supine position with leftward tilt. Initially a Pfannenstiel skin inci david was made and this incision was then carried through to underlying layer of the fashion with the second knife. Fascia was then nicked in the midline and this opening was extended laterally with Dennis scissors. Superior and inferior aspect of this incision were then grasped tented up and bluntly and sharply dissected off the rectus muscles. Rectus muscles were then divided the midline and blunt dissection the peritoneum was made. Once this opening was created in was extended superiorly and inferiorly with good visualization of both bowel bladder. Bladder blade was then placed and the bladder flap identified. It was entered sharply with Metzenbaum scissors and carried across face the uterus and bladder was then digitally and bluntly dissected out of the operative field. Knife was then used to incise uterus. This opening was then extended bluntly following for development through the uterine wall with a hemostat. Clear fluid is noted. Baby A's buttocks was noted and delivered from right sacral presentation. Once body was delivered arms were swept across face and head was easily delivered. Mouth nares were then bulb suctioned and the umbilical cord was clamped cut usual fashion with nursery personnel present to assume care. Prior to rupturing baby B was noted and baby was transverse head to the right side back down therefore baby was converted to breech and once artificial rupture membranes was performed baby was brought into the incision and footling breech was then performed with the baby easily being delivered. Mouth and nares were then bulb suctioned and umbilical cord clamped cut usual fashion with nursery personnel and us administrative law judge present to assume care. Placenta was then delivered intact and Pitocin was added to the IV. Uterus was then exteriorized cleared of clots and debris and closed in 2 layers with 0 Vicryl suture. Once excellent hemostasis was obtained blood and debris was suctioned from the posterior cul-de-sac and the uterus was reinserted into the abdomen. Peritoneal layer was then closed with 0 Vicryl suture. Fascial layer was closed with 0 Vicryl suture. One layer of 3-0 Vicryl was placed in deep subcuticular tissues to reapproximate the skin. Skin was then closed with 3-0 Vicryl subcuticularly. Sponge, lap, needle counts were all correct 2. Patient was then taken to the recovery room in stable and satisfactory condition.
[2019-07-06] MEDS: SENNOSIDES-DOCUSATE SODIUM 1 EACH TAB PO SCH (19:45)
[2019-07-06] MEDS: KETOROLAC 30 MG/ML 1 ML VIAL IVP PRN (21:11)
[2019-07-07] MEDS: KETOROLAC 30 MG/ML 1 ML VIAL IVP PRN (04:22)
[2019-07-07] MEDS: LACTATED RINGERS 1,000 ML IV SCH (05:08)
--- NOTE | 2019-07-07 07:05 | P.PN ---
Progress Note - Text Progress Note Date: 07/07/19 Patient was given intrathecal Duramorph on July 06, 2019 for . This morning, vital signs are stable. The patient denies any facial itching (does endorse some itching at incision site), nausea, vomiting, urinary retention, excessive sedation, respiratory depression, or headache. The patient also denies new-onset fever, weakness, or bowel/bladder incontinence. Her pain score is: 0 at rest Pain medications per primary service; please call back with any further questions. Kim Noland MD
[2019-07-07 07:11] LABS: Anisocytosis Slight; Basophils % (A) 0 %; Eosinophils # (A) 0.1 k/uL (0-0.7); Eosinophils % (A) 1 %; HCT 24.1 % (34.0-46.0); Hypochromasia Marked; Lymphocytes # (A) 2.7 k/uL (1.0-4.8); Lymphocytes % (A) 29 %; MCH 21.7 pg (25.0-35.0); MCV 69.9 fL (80.0-100.0); Mean Platelet Volume 7.6; Microcytosis Marked; Monocytes # (A) 0.4 k/uL (0-1.0); Monocytes % (A) 4 %; Neutrophils % (A) 63 %; Platelet Count 175 k/uL (150-450); Poikilocytosis Moderate; RBC 3.45 m/uL (3.80-5.40); RDW 16.7 % (11.5-15.5); WBC 9.5 k/uL (4.0-11.0)
[2019-07-07 07:22] LABS: HGB 7.5 gm/dL (11.4-16.0)
[2019-07-07] MEDS: SENNOSIDES-DOCUSATE SODIUM 1 EACH TAB PO SCH ×2 (08:40→19:21)
--- NOTE | 2019-07-07 10:40 | P.PNOBGPC ---
Subjective - Subjective Principal diagnosis: Postop day 1 Interval history: Overall doing very well postop day 1 from a section for twins. She is an bleeding, voiding and tolerating her diet. She voices no complaints. She'll remove dressing later today. All other questions are answered for she and her . Patient reports: Reports appetite normal, Reports voiding normally, Reports pain well controlled, Reports ambulating normally : doing well (Baby A is doing well. Baby B is in special care nursery) Objective - Vital Signs Latest vital signs: Vital Signs Temp Pulse Resp BP Pulse Ox 07/07/19 08:00 98.6 F 82 16 113/75 07/07/19 04:00 98 F 88 16 134/79 98 07/07/19 02:00 16 98 07/07/19 00:00 98 F 75 15 133/78 07/06/19 22:00 16 98 07/06/19 20:00 97.8 F 84 16 121/77 97 07/06/19 18:00 14 07/06/19 16:12 14 07/06/19 15:51 97.5 F L 77 12 143/75 07/06/19 15:20 97 F L 73 14 118/57 07/06/19 14:51 77 14 124/76 07/06/19 14:21 64 14 130/77 100 07/06/19 14:06 96.8 F L 78 16 117/58 07/06/19 13:51 78 14 115/66 100 07/06/19 13:36 82 16 116/62 07/06/19 13:21 97.2 F L 82 16 111/67 100 Intake and Output 07/06/19 07/07/19 07/07/19 22:59 06:59 14:59 Intake Total 1250 Output Total 750 500 Balance 500 -500 Intake: IV 50 ceFAZolin 2 gm In Sodium 50 Chloride 0.9% 50 ml @ 100 mls/hr IVPB ONCE ONE Rx# :[id number] Intake, IV Titration 1200 Amount Lactated Ringers 1,000 ml 1200 @ 125 mls/hr IV .Q8H [facility] Rx#:[id number] Output: Urine 750 500 Uretheral ([place]) 400 Other: Voiding Method Indwelling Catheter # Voids 1 - Exam Lungs: bilateral: normal Chest: Normal S1, Normal S2 Extremities: Present: normal Abdomen: Present: normal appearance, soft. Absent: distention, tenderness Incision: Present: normal, dry, intact Uterus: Present: normal, firm - Labs Labs: Abnormal Lab Results - Last 24 Hours (Table) 07/07/19 Range/Units 06:53 RBC 3.45 L (3.80-5.40) m/uL Hgb 7.5 L D (11.4-16.0) gm/dL Hct 24.1 L (34.0-46.0) % MCV 69.9 L (80.0-100.0) fL MCH 21.7 L (25.0-35.0) pg RDW 16.7 H (11.5-15.5) %
[2019-07-07] MEDS: IBUPROFEN 600 MG TAB PO PRN ×2 (11:36→19:21)
[2019-07-07] MEDS: HYDROcodone/APAP 7.5-325MG 1 EACH TAB PO PRN (14:42)
[2019-07-08] MEDS: HYDROcodone/APAP 7.5-325MG 1 EACH TAB PO PRN ×3 (00:30→22:03)
[2019-07-08] MEDS: IBUPROFEN 600 MG TAB PO PRN ×2 (06:05→18:39)
[2019-07-08] MEDS: SENNOSIDES-DOCUSATE SODIUM 1 EACH TAB PO SCH ×2 (08:25→23:47)
--- NOTE | 2019-07-08 08:34 | P.PNOBGPC ---
Subjective - Subjective Principal diagnosis: Postoperative day 2 Interval history: Overall patient is doing well. She is involuting, voiding and tolerating her diet. She is passing flatus. Vital signs are stable and she is afebrile. edema but dropped to 7.5 but she is asymptomatic plan to have her take iron once she is discharged to home. Heart regular, lungs clear, extremities without pain. Abdomen soft and uterus is firm. Her incision is clean dry and intact. Assessment postop day 2. Plan Continue current care as baby girl/B is still in special care nursery Objective - Vital Signs Latest vital signs: Vital Signs Temp Pulse Pulse Resp BP BP Pulse Ox 07/08/19 08:00 98.3 F 99 16 114/77 07/08/19 00:00 97.8 F 96 16 114/70 07/07/19 15:27 97.1 F L 101 H 20 145/70 95 07/07/19 12:00 98.2 F 96 14 109/73
[2019-07-09] MEDS: IBUPROFEN 600 MG TAB PO PRN ×2 (02:20→14:45)
--- NOTE | 2019-07-09 06:31 | P.PNOBGPC ---
Subjective - Subjective Principal diagnosis: Status post section postoperative day #3 Interval history: Patient is doing well. She is working on breast-feeding. Lochia is decreasing. Pain is well-controlled. On baby is still in level I nursery. Patient reports: Reports appetite normal, Reports voiding normally, Reports pain well controlled, Reports ambulating normally [place]: doing well, nursing well Objective - Vital Signs Latest vital signs: Vital Signs Temp Pulse Resp BP Pulse Ox 07/08/19 23:43 97.7 F 76 16 128/71 100 07/08/19 15:57 98.3 F 73 16 101/75 07/08/19 08:00 98.3 F 99 16 114/77 - Exam Extremities: Present: normal Abdomen: Present: normal appearance, soft. Absent: distention Incision: Present: normal, dry, intact Uterus: Present: normal, firm. Absent: tenderness Assessment and Plan (1) S/P primary low transverse Current Visit: No Status: Acute Code(s): Z98.891 - HISTORY OF UTERINE SCAR FROM PREVIOUS SURGERY SNOMED Code(s): 929006638 Plan: Continue with postoperative care today. Anticipate discharge home tomorrow.
[2019-07-09] MEDS: HYDROcodone/APAP 7.5-325MG 1 EACH TAB PO PRN ×2 (09:39→20:46)
[2019-07-09] MEDS: SENNOSIDES-DOCUSATE SODIUM 1 EACH TAB PO SCH ×2 (09:40→20:17)
[2019-07-10] MEDS: HYDROcodone/APAP 7.5-325MG 1 EACH TAB PO PRN (05:54)
--- NOTE | 2019-07-10 07:03 | P.DS ---
Providers Date of admission: 07/06/19 09:48 Expected date of discharge: 07/10/19 Attending physician: Ghassan Mata Primary care physician: Stated None - Discharge Diagnosis(es) (1) S/P primary low transverse Current Visit: No Status: Acute Hospital Course: This is a 18-year-old female 2 para 1 at 37-2/7 weeks who presented for repeat section secondary to twins. Please see history and physical for details of patient's admission. Twin A was a viable male infant with scores of 9 at 1 minute and 9 at 5 minutes and infant weight is 7 lbs. 5 oz. Twin B was a female with scores of 8 at 1 minute and 9 at 5 minutes and infant weight of 6 lbs. 9 oz. Her course has been essentially uncomplicated. She has been working on breast-feeding. Lochia is decreasing. Pain is fairly well controlled with ibuprofen and [place]. She has passed flatus and bowel movement. Vital signs are stable. Abdomen is soft with positive bowel sounds 4. Incision is clean dry and intact. Extremities show negative Homans. Impression is status post repeat section postoperative day #4. Plan is to discharge home today. Routine post operative and instructions are given. Prescriptions have already been written by Dr. Mata. She already has a breast pump. She is advised to follow up in the office in 1 week for postoperative check and in 6 weeks for a check. She is advised to call the office if she has any further questions or concerns prior to her appointment time. Procedures: Repeat low transverse section on 07/06/2019. Patient Condition at Discharge: Stable Plan - Discharge Summary Discharge Rx Participant: No New Discharge Prescriptions: New Ibuprofen [Motrin] 600 mg PO Q6HR PRN #30 tab PRN Reason: Pain HYDROcodone/APAP 5-325MG [[place] 5-325] 1 tab PO Q4HR PRN #30 tab PRN Reason: Pain No Action Ntb-Tica-Opblg Acid [-U Capsule (formulary)] 1 cap PO DAILY MDD 1 Discharge Medication List Snx-Ztrp-Yayss Acid [-U Capsule (formulary)] 1 cap PO DAILY MDD 1 12/30/18 [History] HYDROcodone/APAP 5-325MG [[place] 5-325] 1 tab PO Q4HR PRN #30 tab 07/08/19 [Rx] Ibuprofen [Motrin] 600 mg PO Q6HR PRN #30 tab 07/08/19 [Rx] Follow up Appointment(s)/Referral(s): Ghassan Mata DO [Doctor of Osteopathic Medicine] - 1 Week Activity/Diet/Wound Care/Special Instructions: No heavy lifting, limit stairs and driving and pelvic rest. call for any high tempratures/heavy bleeding/severe pain. wash incision with gentle soap and water twice daily and pat dry Discharge Disposition: HOME SELF-CARE
[2019-07-10] MEDS: IBUPROFEN 600 MG TAB PO PRN (09:38)
[2019-07-10 10:59] VITALS: BP 134/74; PULSE 83; RESP 18; TEMP 98.5
== END 2019-07-10 12:07 | disposition home or self-care (01) | DRG 788 ==
LOC: 4FBP 09:48
PROVIDERS: ADMIT Obstetrics & Gynecology; ATTEND Obstetrics & Gynecology
PROC: 10D00Z1 Extraction of Products of Conception, Low, Open Approach (ICD-10-PCS; principal; 2019-07-06 12:34)
DX: O32.1XX1 Maternal care for breech presentation, fetus 1 (principal); O32.8XX2 Maternal care for other malpresentation of fetus, fetus 2; O30.033 Twin pregnancy, monochorionic/diamniotic, third trimester; O34.211 Maternal care for low transverse scar from previous cesarean delivery; N85.8 Other specified noninflammatory disorders of uterus; O99.62 Diseases of the digestive system complicating childbirth; K21.9 Gastro-esophageal reflux disease without esophagitis; Z37.2 Twins, both liveborn; Z3A.37 37 weeks gestation of pregnancy; Z79.899 Other long term (current) drug therapy
CPT/HCPCS: 85025; 86850; 86900; 86901; 88307

== ENCOUNTER 2019-08-11 16:20 | Emergency (ER) | payer OTHER ==
[2019-08-11 16:28] VITALS: RESP 18
--- NOTE | 2019-08-11 17:34 | ED ---
Wound/Laceration HPI - General Chief Complaint: Wound/Laceration Stated Complaint: Post op scar infection Time Seen by Provider: 08/11/19 16:25 Source: patient, RN notes reviewed, old records reviewed Mode of arrival: ambulatory Limitations: no limitations - History of Present Illness Initial Comments: This is a 18-year-old female here for evaluation. Patient previously for evaluation regards to recheck of abdominal wound, scar. Patient has recent history of , scar is healed well. She did snort some fluid from the right aspect of the scar today. No fevers. No significant surrounding erythema. Patient had no problems the scar healing, surgery is been about 5 weeks out. No abdominal pain. No changes in bowel habits no nausea vomiting or diarrhea -: days(s) Location: abdomen Place: home Patient Tetanus UTD: Yes Context: other (Postop) Associated Symptoms: none - Related Data Home Medications Medication Instructions Recorded Confirmed Kpp-Vqgl-Xrjuc Acid 1 cap PO DAILY MDD 1 12/30/18 07/01/19 [-U Capsule (formulary)] Previous Rx's Medication Instructions Recorded HYDROcodone/APAP 5-325MG [Needles 1 tab PO Q4HR PRN #30 tab 07/08/19 5-325] Ibuprofen [Motrin] 600 mg PO Q6HR PRN #30 tab 07/08/19 Allergies Allergy/AdvReac Type Severity Reaction Status Date / Time coconut AdvReac Nausea Verified 08/11/19 16:24 Review of Systems ROS Statement: Those systems with pertinent positive or pertinent negative responses have been documented in the HPI. ROS Other: All systems not noted in ROS Statement are negative. Past Medical History Past Medical History: GERD/Reflux Additional Past Medical History / Comment(s): OB history: This is her first and she started care with Dr Mata at 25 weeks. O+, abs neg, Rub Imm, RPR NR, Hep B neg. abnormal 1hr, normal 3hr GTT. most recent US last week showed baby to be over 10 pounds and AMANDA 27cm. She refused C/S that day but agreed to one being scheduled. History of Any Multi-Drug Resistant Organisms: None Reported Past Surgical History: Section Past Anesthesia/Blood Transfusion Reactions: No Reported Reaction Past Psychological History: No Psychological Hx Reported Smoking Status: Never smoker Past Alcohol Use History: None Reported Past Drug Use History: None Reported - Past Family History Sister(s) Family Medical History: Blood Disorder Additional Family Medical History / Comment(s): Patient's mother states her sister has a history of blood clots-specifics unknown. General Exam Limitations: no limitations General appearance: alert, in no apparent distress Head exam: Present: atraumatic, normocephalic, normal inspection Eye exam: Present: normal appearance, PERRL, EOMI. Absent: scleral icterus, conjunctival injection, periorbital swelling ENT exam: Present: normal exam, mucous membranes moist Neck exam: Present: normal inspection. Absent: tenderness, meningismus, lymphadenopathy Respiratory exam: Present: normal lung sounds bilaterally. Absent: respiratory distress, wheezes, rales, rhonchi, stridor Cardiovascular Exam: Present: regular rate, normal rhythm, normal heart sounds. Absent: systolic murmur, diastolic murmur, rubs, gallop, clicks GI/Abdominal exam: Present: soft, normal bowel sounds, other (Patient does have well-healed scar no significant erythema there is a minute puncture wound to the right aspect of the area with no identifiable or palpable abscess no drainage noted or expressing the site). Absent: distended, tenderness, guarding, rebound, rigid Extremities exam: Present: normal inspection, full ROM, normal capillary refill. Absent: tenderness, pedal edema, joint swelling, calf tenderness Back exam: Present: normal inspection Neurological exam: Present: alert, oriented X3, CN II-XII intact Psychiatric exam: Present: normal affect, normal mood Skin exam: Present: warm, dry, intact, normal color. Absent: rash Course Vital Signs 08/11/19 16:25 Temperature 99.5 F Pulse Rate 90 Respiratory 18 Rate Blood Pressure 113/63 O2 Sat by Pulse 99 Oximetry - Reevaluation(s) Reevaluation #1: 08/11/19 18:39 Medical records reviewed Medical Decision Making - Medical Decision Making White female the ER for evaluation patient presents today for evaluation of some drainage from site which was likely serosanguineous in nature, no abscess noted no fevers no surrounding erythema patient will be placed on prophylactic antibiotics secondary to ", NEGATIVE FOR ABSCESS, PATIENT CAN BE DISCHARGED - Radiology Data Radiology results: report reviewed (Ultrasound showing no distinct or discrete abscess), image reviewed Disposition Clinical Impression: Encounter for postoperative wound check Disposition: HOME SELF-CARE Condition: Good Instructions (If sedation given, give patient instructions): Seroma (DC) Is patient prescribed a controlled substance at d/c from ED?: No Referrals: None,Stated [Primary Care Provider] - 1-2 days
--- NOTE | 2019-08-11 19:02 | US ---
EXAMINATION TYPE: US abdomen limited DATE OF EXAM: 08/11/2019 COMPARISON: NONE CLINICAL HISTORY: wound. Wound. Abscess? 07/06/2019. Scanned RLQ area of concern. Complex area seen at area of concern measurin.6 x 0.9 x 0.3 cm. A second smaller complex area seen to the right of first area measurin.3 x 0.5 x 0.2 cm. IMPRESSION: There are 2 small hypoechoic areas near the skin surface as above in the area of concern in the right lower quadrant. Appearance is nonspecific. I would consider possibilities of seroma or hematoma or abscess.
[2019-08-11 19:32] VITALS: BP 110/74; PULSE 102; TEMP 98
== END 2019-08-11 19:36 | disposition home or self-care (01) ==
LOC: EC 16:20
DX: Z48.816 Encounter for surgical aftercare following surgery on the genitourinary system (principal); Z91.018 Allergy to other foods
CPT/HCPCS: 76705; 99284

== ENCOUNTER 2021-05-17 15:19 | Emergency (ER) | payer OTHER ==
[2021-05-17 15:46] VITALS: BP 127/85; PULSE 113; RESP 20; TEMP 98.6
--- NOTE | 2021-05-17 16:54 | ED ---
ENT HPI - General Chief complaint: ENT Stated complaint: Sore on mouth and hands Time Seen by Provider: 05/17/21 16:19 Source: patient Mode of arrival: ambulatory Limitations: no limitations - History of Present Illness Initial comments: 20-year-old female presents to the emergency room with a chief complaint of a rash. Patient states she noticed a rash yesterday on the palms of both of her hands. States it is itchy but not painful. States all of her children in the house have ziqm-kxiq-nli-mouth. She denies any lesions on the soles of the feet or inside the mouth. Denies any fevers or chills. She denies any difficulty swallowing breathing. Denies other rashes throughout the body. - Related Data Home Medications Medication Instructions Recorded Confirmed Btr-Nczy-Cdxio Acid 1 cap PO DAILY MDD 1 12/30/18 07/01/19 [-U Capsule (formulary)] Previous Rx's Medication Instructions Recorded HYDROcodone/APAP 5-325MG [[place] 1 tab PO Q4HR PRN #30 tab 07/08/19 5-325] Ibuprofen [Motrin] 600 mg PO Q6HR PRN #30 tab 07/08/19 Cephalexin [Keflex] 500 mg PO Q8HR #21 cap 08/11/19 Allergies Allergy/AdvReac Type Severity Reaction Status Date / Time coconut AdvReac Nausea Verified 05/17/21 15:46 Review of Systems ROS Statement: Those systems with pertinent positive or pertinent negative responses have been documented in the HPI. ROS Other: All systems not noted in ROS Statement are negative. Past Medical History Past Medical History: GERD/Reflux Additional Past Medical History / Comment(s): OB history: This is her first and she started care with Dr Mata at 25 weeks. O+, abs neg, Rub Imm, RPR NR, Hep B neg. abnormal 1hr, normal 3hr GTT. most recent US last week showed baby to be over 10 pounds and AMANDA 27cm. She refused C/S that day but agreed to one being scheduled. History of Any Multi-Drug Resistant Organisms: None Reported Past Surgical History: Section Past Anesthesia/Blood Transfusion Reactions: No Reported Reaction Past Psychological History: No Psychological Hx Reported Past Alcohol Use History: None Reported Past Drug Use History: None Reported - Past Family History Sister(s) Family Medical History: Blood Disorder Additional Family Medical History / Comment(s): Patient's mother states her sist er has a history of blood clots-specifics unknown. General Exam Limitations: no limitations General appearance: alert, in no apparent distress Head exam: Present: atraumatic, normocephalic, normal inspection Eye exam: Present: normal appearance, PERRL, EOMI Pupils: Present: normal accommodation ENT exam: Present: normal exam, normal oropharynx, mucous membranes moist, TM's normal bilaterally, normal external ear exam Neck exam: Present: normal inspection, full ROM. Absent: tenderness Respiratory exam: Present: normal lung sounds bilaterally. Absent: respiratory distress, wheezes, rales, rhonchi, stridor, chest wall tenderness, accessory muscle use Cardiovascular Exam: Present: regular rate, normal rhythm, normal heart sounds Extremities exam: Present: full ROM, normal capillary refill. Absent: normal inspection (Small maculopapular regions on the palms of both hands), tenderness Back exam: Present: normal inspection, full ROM. Absent: tenderness Neurological exam: Present: alert, oriented X3 Psychiatric exam: Present: normal affect, normal mood Skin exam: Present: warm, dry, intact, normal color Course Vital Signs 05/17/21 15:44 Temperature 98.6 F Pulse Rate 113 H Respiratory 20 Rate Blood Pressure 127/85 O2 Sat by Pulse 97 Oximetry Medical Decision Making - Medical Decision Making 20-year-old female presents to emergency Department with a chief complaint of a rash. On physical examination, there appeared to be small maculopapular rash on both hands. I did not notice anything on the soles of the feet or the mouth. She had direct exposure to multiple of her children who have ttsd-dyqw-yrx-mouth at this time. I suspect the patient will also developed a rash on her mouth and her feet as the condition progresses. I advised the mother about the contagious nature of the condition. Advised to take hmis-kqe-epzejkg anti- histamines for symptomatically relief. Return parameters were discussed with patient was understanding and agreeable. Disposition Clinical Impression: Hand, foot and mouth disease Disposition: ADMITTED IP TO THIS [facility] Condition: Stable Instructions (If sedation given, give patient instructions): Hand, Foot, and Mouth Disease (ED) Additional Instructions: Please return to the Emergency Department if symptoms worsen or any other concerns. Is patient prescribed a controlled substance at d/c from ED?: No Referrals: None,Stated [Primary Care Provider] - 1-2 days Time of Disposition: 16:54
== END 2021-05-17 17:13 | disposition other institution (70) ==
LOC: EC 15:19
DX: B08.4 Enteroviral vesicular stomatitis with exanthem (principal); K21.9 Gastro-esophageal reflux disease without esophagitis; Z79.1 Long term (current) use of non-steroidal anti-inflammatories (NSAID)
CPT/HCPCS: 99284

== ENCOUNTER → 2021-09-18 | Outpatient (CLI) | payer OTHER ==
[2021-09-18 19:11] LABS: ALT 16 U/L (8-44); AST 22 U/L (13-35); African American GFR (CKD) 120.4 (60.0-200.0); Albumin 4.4 g/dL (3.8-4.9); Albumin/Globulin Ratio 1.47 (1.60-3.17); Alkaline Phosphatase 95 U/L (41-126); BUN/Creat Ratio 15.38 Ratio (12.00-20.00); Blood Urea Nitrogen 12.3 mg/dL (9.0-27.0); Calcium 9.2 mg/dL (8.7-10.3); Carbon Dioxide 19.7 mmol/L (20.0-27.5); Chloride 103 mmol/L (96-109); Glucose 95 mg/dL (70-110); Non-African American GFR(CKD) 103.9 (60.0-200.0); Potassium 3.5 mmol/L (3.5-5.5); Sodium 138 mmol/L (135-145); Total Bilirubin <0.20 mg/dL (0.30-1.20); Total Protein 7.4 g/dL (6.2-8.2)
[2021-09-19 11:22] LABS: Chol/HDL Ratio 4.05 Ratio; LDL Cholesterol,Calculated 71.2 mg/dL (0.0-131.0); VLDL Calculation 18.44 mg/dL (5.00-40.00)
== END | disposition home or self-care (01) ==
LOC: LABWHC1 13:17
PROVIDERS: ATTEND Family Medicine
DX: F41.1 Generalized anxiety disorder (principal)
CPT/HCPCS: 36415; 80053; 80061; 84443

== ENCOUNTER → 2022-06-24 | Outpatient (CLI) | payer OTHER ==
--- NOTE | 2022-06-24 10:48 | USB ---
Reason for Exam: Clinical finding. Technique: Method: Targeted. Findings: The lateral section of the breast of the right breast, the area of palpable concern of the right breast and the axilla of the right breast were scanned. Targeted ultrasound of the right breast from 6-12 o'clock with evaluation of the right axilla also performed. Benign-appearing intramammary lymph node at 9:00 9 cm from the nipple measuring 0.6 cm with cortex measuring up to 2 mm. Lobulated cyst with debris demonstrated within the right breast at 11:00 5 cm from the nipple. No internal color flow. This measures 0.9 x 0.4 x 0.8 cm. Additional benign-appearing lymph node in the right axilla measuring 0.9 x 0.2 cm. Overall Assessment: Benign, BI-RAD 2 Management: Screening Mammogram of both breasts at age 38. A clinical breast exam by your physician is recommended on an annual basis and results should be correlated with mammographic findings. This exam should not preclude additional follow-up of suspicious palpable abnormalities. ??Results were given to the patient verbally at the time of exam. Electronically signed and approved by: Dmitriy Martinez D.O.
== END | disposition home or self-care (01) ==
LOC: RADUSWWP 09:59
PROVIDERS: ATTEND Family Medicine
DX: N63.10 Unspecified lump in the right breast, unspecified quadrant (principal)

== ENCOUNTER → 2023-07-22 | Outpatient (CLI) | payer OTHER ==
--- NOTE | 2023-07-22 14:32 | US ---
EXAMINATION TYPE: US transvaginal DATE OF EXAM: 07/22/2023 COMPARISON: NONE CLINICAL INDICATION: Female, 22 years old with history of R10.2PELVIC AND PERINEAL PAIN; Previous pel laura pain for one week. States it felt like "pressure". Pain is now resolved. Hx of 2 C-sections. TECHNIQUE: Transvaginal sonographic images were medically necessary to better assess the following a natomy: Date of LMP: 07/06/2023 EXAM MEASUREMENTS: Uterus: 9.0 x 4.8 x 4.7 cm Endometrial Stripe: 1.3 cm Right Ovary: 3.3 x 2.3 x 2.5 cm Left Ovary: 3.0 x 2.1 x 1.4 cm Billing Supervisor notes: Exam limited due to patient body habitus and overlying bowel gas. 1. Uterus: Anteverted. wnl, prominent scar seen. No abnormal fluid within the scar. 2. Endometrium: wnl 3. Right Ovary: wnl with follicular change 4. Left Ovary: wnl with follicular change 5. Bilateral Adnexa: Obscured by overlying bowel gas 6. Posterior cul-de-sac: small amount of free fluid noted IMPRESSION: 1. Normal follicular change in the ovaries. 2. scar noted anterior lower uterine segment. 3. Small amount of cul-de-sac free fluid likely physiologic. 4. Endometrial stripe thickness of 1.3 cm should correspond to the secretory phase of the menstrual c ycle.
== END | disposition home or self-care (01) ==
LOC: RADUSWWP 13:35
PROVIDERS: ATTEND Family Medicine
DX: R10.2 Pelvic and perineal pain (principal)
CPT/HCPCS: 76830

== ENCOUNTER 2023-12-18 21:42 | Emergency (ER) | payer OTHER ==
--- NOTE | 2023-12-18 22:04 | ED ---
Abdominal Pain HPI - General Source: patient, family, RN notes reviewed Mode of arrival: ambulatory Limitations: no limitations <Lizbeth Jung - Last Filed: 12/19/23 00:02> <Tomas Morton - Last Filed: 12/19/23 00:53> - General Chief Complaint: Abdominal Pain Stated Complaint: Abd pain-post procedure Time Seen by Provider: 12/18/23 21:53 - History of Present Illness Initial Comments: This is a 23-year-old female with a history of GERD, hiatal hernia, and section, who presents emergency department chief complaint of right upper quadrant abdominal pain. Patient states that she woke up from a nap this evening with a sharp and stabbing-like sensation of her right upper quadrant that comes and goes in nature, denies radiation of pain and is rated as an 8/10 when the pain arises. She endorses an episode or emesis like regurgitation today, which is not abnormal for her due to her diagnosis of GERD and hiatal hernia. She admits to an episode of diarrhea today. She denies fevers, dysuria, hematuria, back pain. Additionally, patient underwent an EGD today due to refractory GERD where she was diagnosed with gastritis and a hiatal hernia and instructed to increase her dose of omeprazole. (Lizbeth Jung) - Related Data Home Medications Medication Instructions Recorded Confirmed ARIPiprazole [Aripiprazole] 5 mg PO HS 12/17/23 12/17/23 Albuterol Sulfate [Ventolin HFA] 1 puff INHALATION Q4H PRN 12/17/23 12/17/23 Loratadine 10 mg PO DAILY 12/17/23 12/17/23 Pantoprazole [Protonix] 40 mg PO DAILY 12/17/23 12/17/23 Sertraline [Zoloft] 100 mg PO DAILY 12/17/23 12/17/23 hydrOXYzine HCL [Hydroxyzine HCl] 50 mg PO DIRECTED PRN 12/17/23 12/17/23 Allergies Allergy/AdvReac Type Severity Reaction Status Date / Time adhesive tape Allergy red itchy Verified 12/18/23 21:59 skin. coconut AdvReac Nausea Verified 12/18/23 21:59 Review of Systems ROS Other: All systems not noted in ROS Statement are negative. <Stieler,Lizbeth - Last Filed: 12/19/23 00:02> ROS Other: All systems not noted in ROS Statement are negative. <Tomas Morton - Last Filed: 12/19/23 00:53> ROS Statement: Those systems with pertinent positive or pertinent negative responses have been documented in the HPI. Past Medical History Past Medical History: Asthma, GERD/Reflux Additional Past Medical History / Comment(s): allergies, feels skipping of heart beats at times. problems with hips and knees since 12 yrs old. increase in heartburn pain over the last year. History of Any Multi-Drug Resistant Organisms: None Reported Past Surgical History: Section Additional Past Surgical History / Comment(s): 2 c sections. wisdom teeth removed on bottom. Past Anesthesia/Blood Transfusion Reactions: No Reported Reaction Past Psychological History: Anxiety, Depression Smoking Status: Vaper Past Alcohol Use History: None Reported Past Drug Use History: None Reported - Past Family History Sister(s) Family Medical History: Blood Disorder, Deep Vein Thrombosis (DVT) Additional Family Medical History / Comment(s): Patient's mother states her sister has a history of blood clots-specifics unknown. <Lizbeth Jung - Last Filed: 12/19/23 00:02> General Exam Limitations: no limitations General appearance: alert, in no apparent distress Head exam: Present: atraumatic, normocephalic, normal inspection Eye exam: Present: normal appearance, PERRL, EOMI. Absent: scleral icterus, conjunctival injection, periorbital swelling ENT exam: Present: normal exam, mucous membranes moist Neck exam: Present: normal inspection. Absent: tenderness, meningismus, lymphadenopathy Respiratory exam: Present: normal lung sounds bilaterally. Absent: respiratory distress, wheezes, rales, rhonchi, stridor Cardiovascular Exam: Present: regular rate, normal rhythm, normal heart sounds. Absent: systolic murmur, diastolic murmur, rubs, gallop, clicks GI/Abdominal exam: Present: soft, tenderness (mild tenderness with deep palpation of the RUQ), normal bowel sounds. Absent: distended, guarding, rebound, rigid Extremities exam: Present: normal inspection, full ROM, normal capillary refill. Absent: tenderness, pedal edema, joint swelling, calf tenderness Back exam: Present: normal inspection Neurological exam: Present: alert, oriented X3, CN II-XII intact Psychiatric exam: Present: normal affect, normal mood Skin exam: Present: warm, dry, intact, normal color. Absent: rash <Lizbeth Jung - Last Filed: 12/19/23 00:02> Course <Tomas Morton - Last Filed: 12/19/23 00:53> Vital Signs 12/18/23 12/19/23 21:55 00:46 Temperature 98.1 F Pulse Rate 104 H 79 Respiratory 22 18 Rate Blood Pressure 129/91 118/87 O2 Sat by Pulse 100 100 Oximetry - Reevaluation(s) Reevaluation #1: 12/19/23 00:53 Medical records reviewed (Tomas Morton) Reevaluation #2: 12/19/23 00:53 Patient symptoms are improved (Tomas Morton) Reevaluation #3: 12/19/23 00:53 Patient informed of results and questions answered (Tomas Morton) Medical Decision Making - Lab Data Result diagrams: 12/18/23 22:20 12/18/23 22:20 <Lizbeth Jung - Last Filed: 12/19/23 00:02> - Lab Data Result diagrams: 12/18/23 22:20 12/18/23 22:20 - Radiology Data Radiology results: report reviewed (Some gallbladder negative for acute disease), image reviewed <Tomas Morton - Last Filed: 12/19/23 00:53> - Medical Decision Making Was pt. sent in by a medical professional or institution (, PA, BALL POINT SPLITTER, urgent care, hospital, or snf...) When possible be specific @ -[No] Did you speak to anyone other than the patient for history (EMS, parent, family, police, friend...)? What history was obtained from this source @ -[No] Did you review nursing and triage notes (agree or disagree)? Why? @ -[I reviewed and agree with nursing and triage notes] Were old charts reviewed (outside hosp., previous admission, EMS record, old EKG, old radiological studies, urgent care reports/EKG's, snf records)? Report findings @ -Procedure chart from today reviewed showed that EGD revealed patient to have a hiatal hernia and mild gastritis. Differential Diagnosis (chest pain, altered mental status, abdominal pain women, abdominal pain men, vaginal bleeding, weakness, fever, dyspnea, syncope, headache, dizziness, GI bleed, back pain, seizure, CVA, palpatations, mental health, musculoskeletal)? @ -Differential Abdominal Pain Women: Appendicitis, Cholecystitis, diverticulosis, ischemic bowel, pancreatitis, hepatitis, UTI, gastroenteritis, AAA, incarcerated hernia, bowel obstruction, constipation, inflammatory bowel, hepatitis, peptic ulcer disease, splenic i nfarction, perforated viscus, vulvitis, ovarian torsion, PID, kidney stone, placenta abruption, this is not meant to be an all-inclusive list EKG interpreted by me (3pts min.). @ -None X-rays interpreted by me (1pt min.). @ -[None done] CT interpreted by me (1pt min.). @ -[None done] U/S interpreted by me (1pt. min.). @ -Ultrasound of the abdomen with concentration in the right upper quadrant rev eals What testing was considered but not performed or refused? (CT, X-rays, U/S, labs)? Why? @ -[None] What meds were considered but not given or refused? Why? @ -[None] Did you discuss the management of the patient with other professionals (professionals i.e. , PA, BALL POINT SPLITTER, lab, RT, psych nurse, social insurance specialist, integrated pest management technician, teacher, community services officer, case management rn)? Give summary @ -[No] Was smoking cessation discussed for >3mins.? @ -[No] Was critical care preformed (if so, how long)? @ -[No] Were there social determinants of health that impacted care today? How? (Homelessness, low income, unemployed, alcoholism, drug addiction, transportation, low edu. Level, literacy, decrease access to med. care, long-term, rehab)? @ -[No] Was there de-escalation of care discussed even if they declined (Discuss DNR or withdrawal of care, Hospice)? DNR status @ -[No] What co-morbidities impacted this encounter? (DM, HTN, Smoking, COPD, CAD, Cancer, CVA, ARF, Chemo, Hep., AIDS, mental health diagnosis, sleep apnea, morbid obesity)? @ -[None] Was patient admitted / discharged? Hospital course, mention meds given and route, prescriptions, significant lab abnormalities, going to OR and other pertinent info. @ -23-year-old female with right upper quadrant abdominal pain. On examination patient noted to have very mild tenderness to palpation of the right upper quadrant. Abdomen is soft, nonrigid. No CVA tenderness or flank pain noted. Basic laboratory results ordered in addition to ultrasound of the right upper quadrant. Urinalysis remarkable for blood and red blood cells which consistent with the patient's history of currently being on her menstrual cycle. laboratory results of CBC, CMP, amylase and lipase no acute findings and within normal limits. Evaluation of the patient, states that she feels much better after administration of Tylenol. Undiagnosed new problem with uncertain prognosis? @ -[No] Drug Therapy requiring intensive monitoring for toxicity (Heparin, Nitro, I nsulin, Cardizem)? @ -[No] Were any procedures done? @ -[No] Diagnosis/symptom? @ -[default] Acute, or Chronic, or Acute on Chronic? @ -[default] Uncomplicated (without systemic symptoms) or Complicated (systemic symptoms)? @ -[default] Side effects of treatment? @ -[No] Exacerbation, Progression, or Severe Exacerbation? @ -[No] Poses a threat to life or bodily function? How? (Chest pain, [place], [place], pneumonia, PE, COPD, DKA, ARF, appy, cholecystitis, CVA, Diverticulitis, Homicidal, Suicidal, threat to staff... and all critical care pts) @ -[No] (Lizbeth Jung) 23 female to the ER for evaluation abdominal pain. No significant findings on ultrasound or lab testing here in the ER patient pain is improved she can be discharged home (Tomas Morton) - Lab Data Lab Results 12/18/23 12/18/23 12/18/23 Range/Units 22:10 22:10 22:20 WBC 9.5 (3.8-10.6) k/uL RBC 5.21 (3.80-5.40) m/uL Hgb 14.6 (11.4-16.0) gm/dL Hct 44.7 (34.0-46.0) % MCV 85.9 (80.0-100.0) fL MCH 28.0 (25.0-35.0) pg MCHC 32.6 (31.0-37.0) g/dL RDW 13.3 (11.5-15.5) % Plt Count 282 (150-450) k/uL MPV 8.4 Neutrophils % 64 % Lymphocytes % 28 % Monocytes % 4 % Eosinophils % 3 % Basophils % 1 % Neutrophils # 6.1 (1.3-7.7) k/uL Lymphocytes # 2.7 (1.0-4.8) k/uL Monocytes # 0.4 (0-1.0) k/uL Eosinophils # 0.3 (0-0.7) k/uL Basophils # 0.1 (0-0.2) k/uL Sodium (137-145) mmol/L Potassium (3.5-5.1) mmol/L Chloride (98-107) mmol/L Carbon Dioxide (22-30) mmol/L Anion Gap mmol/L BUN (7-17) mg/dL Creatinine (0.52-1.04) mg/dL Est GFR (CKD-EPI)AfAm (>60 ml/min/1.73 sqM) Est GFR (CKD-EPI)NonAf (>60 ml/min/1.73 sqM) Glucose (74-99) mg/dL Calcium (8.4-10.2) mg/dL Total Bilirubin (0.2-1.3) mg/dL AST (14-36) U/L ALT (4-34) U/L Alkaline Phosphatase (38-126) U/L Total Protein (6.3-8.2) g/dL Albumin (3.5-5.0) g/dL Amylase (30-110) U/L Lipase (23-300) U/L Urine Color Colorless Urine Appearance Clear (Clear) Urine pH 7.0 (5.0-8.0) Ur Specific [place] 1.007 (1.001-1.035) Urine Protein Negative (Negative) Urine Glucose (UA) Negative (Negative) Urine Ketones Negative (Negative) Urine Blood Moderate H (Negative) Urine Nitrite Negative (Negative) Urine Bilirubin Negative (Negative) Urine Urobilinogen <2.0 (<2.0) mg/dL Ur Leukocyte Esterase Negative (Negative) Urine RBC 42 H (0-5) /hpf Ur Squamous Epith Cells 1 (0-4) /hpf Amorphous Sediment Rare H (None) /hpf Urine HCG, Qual Not Detected (Not Detectd) 12/18/23 Range/Units 22:20 WBC (3.8-10.6) k/uL RBC (3.80-5.40) m/uL Hgb (11.4-16.0) gm/dL Hct (34.0-46.0) % MCV (80.0-100.0) fL MCH (25.0-35.0) pg MCHC (31.0-37.0) g/dL RDW (11.5-15.5) % Plt Count (150-450) k/uL MPV Neutrophils % % Lymphocytes % % Monocytes % % Eosinophils % % Basophils % % Neutrophils # (1.3-7.7) k/uL Lymphocytes # (1.0-4.8) k/uL Monocytes # (0-1.0) k/uL Eosinophils # (0-0.7) k/uL Basophils # (0-0.2) k/uL Sodium 141 (137-145) mmol/L Potassium 3.8 (3.5-5.1) mmol/L Chloride 108 H (98-107) mmol/L Carbon Dioxide 21 L (22-30) mmol/L Anion Gap 12 mmol/L BUN 12 (7-17) mg/dL Creatinine 0.62 (0.52-1.04) mg/dL Est GFR (CKD-EPI)AfAm >90 (>60 ml/min/1.73 sqM) Est GFR (CKD-EPI)NonAf >90 (>60 ml/min/1.73 sqM) Glucose 118 H (74-99) mg/dL Calcium 9.3 (8.4-10.2) mg/dL Total Bilirubin 0.4 (0.2-1.3) mg/dL AST 18 (14-36) U/L ALT 18 (4-34) U/L Alkaline Phosphatase 107 (38-126) U/L Total Protein 7.3 (6.3-8.2) g/dL Albumin 4.3 (3.5-5.0) g/dL Amylase 53 (30-110) U/L Lipase 66 (23-300) U/L Urine Color Urine Appearance (Clear) Urine pH (5.0-8.0) Ur Specific [place] (1.001-1.035) Urine Protein (Negative) Urine Glucose (UA) (Negative) Urine Ketones (Negative) Urine Blood (Negative) Urine Nitrite (Negative) Urine Bilirubin (Negative) Urine Urobilinogen (<2.0) mg/dL Ur Leukocyte Esterase (Negative) Urine RBC (0-5) /hpf Ur Squamous Epith Cells (0-4) /hpf Amorphous Sediment (None) /hpf Urine HCG, Qual (Not Detectd) Disposition <Lizbeth Jung - Last Filed: 12/19/23 00:02> Is patient prescribed a controlled substance at d/c from ED?: No Time of Disposition: 00:45 <Tomas Morton - Last Filed: 12/19/23 00:53> Clinical Impression: Abdominal pain Disposition: HOME SELF-CARE Condition: Good Instructions (If sedation given, give patient instructions): Abdominal Pain (ED) Referrals: Brett Tsang MD [Primary Care Provider] - 1-2 days
[2023-12-18 22:17] VITALS: TEMP 98.1
[2023-12-18] MEDS: ACETAMINOPHEN TAB 500 MG TAB PO STA (22:30)
[2023-12-18 22:32] LABS: Basophils # (A) 0.1 k/uL (0-0.2); Basophils % (A) 1 %; Eosinophils # (A) 0.3 k/uL (0-0.7); Eosinophils % (A) 3 %; HCT 44.7 % (34.0-46.0); HGB 14.6 gm/dL (11.4-16.0); Lymphocytes # (A) 2.7 k/uL (1.0-4.8); Lymphocytes % (A) 28 %; MCHC 32.6 g/dL (31.0-37.0); MCV 85.9 fL (80.0-100.0); Mean Platelet Volume 8.4; Monocytes # (A) 0.4 k/uL (0-1.0); Monocytes % (A) 4 %; Neutrophils # (A) 6.1 k/uL (1.3-7.7); Neutrophils % (A) 64 %; Platelet Count 282 k/uL (150-450); RBC 5.21 m/uL (3.80-5.40); RDW 13.3 % (11.5-15.5); WBC 9.5 k/uL (3.8-10.6)
[2023-12-18 22:38] LABS: Amorphous Sediment,Urine Rare /hpf; Appearance,Urine Clear (Clear); Bilirubin,Urine Negative (Negative); Blood,Urine Moderate (Negative); Color,Urine Colorless; Glucose,Urine (UA) Negative (Negative); Ketones,Urine Negative (Negative); Leukocyte Esterase,Urine Negative (Negative); Nitrite,Urine Negative (Negative); Protein,Urine Negative (Negative); RBC,Urine 42 /hpf (0-5); Specific Gravity,Urine 1.007 (1.001-1.035); Squamous Epithelial Cell,Urine 1 /hpf (0-4); Urobilinogen,Urine <2.0 mg/dL (<2.0)
[2023-12-18 23:11] LABS: ALT 18 U/L (4-34); AST 18 U/L (14-36); African American GFR (CKD) >90 (>60 ml/min/1.73 sqM); Albumin 4.3 g/dL (3.5-5.0); Alkaline Phosphatase 107 U/L (38-126); Amylase 53 U/L (30-110); Anion Gap 12 mmol/L; Blood Urea Nitrogen 12 mg/dL (7-17); Calcium 9.3 mg/dL (8.4-10.2); Carbon Dioxide 21 mmol/L (22-30); Chloride 108 mmol/L (98-107); Glucose 118 mg/dL (74-99); Lipase 66 U/L (23-300); Non-African American GFR(CKD) >90 (>60 ml/min/1.73 sqM); Potassium 3.8 mmol/L (3.5-5.1); Sodium 141 mmol/L (137-145); Total Bilirubin 0.4 mg/dL (0.2-1.3); Total Protein 7.3 g/dL (6.3-8.2)
--- NOTE | 2023-12-19 00:49 | US ---
EXAM: US Abdomen Complete CLINICAL HISTORY: US Reason: RUQ colicky pain TECHNIQUE: Real-time ultrasound of the abdomen with image documentation. COMPARISON: No relevant prior studies available. FINDINGS: Liver: The liver measures 16.6 cm with normal echotexture. No focal liver lesion is seen. No intrahepatic bile duct dilation. Gallbladder: There is a 4 mm nonshadowing gallstone within the gallbladder per the gallbladder is normally distended. No wall thickening or surrounding fluid is seen. Common bile duct: The common bile duct is nondilated measuring 5 mm. Pancreas: The visualized portion of the pancreas is unremarkable. Kidneys: The right kidney measures 11.7 cm. The left kidney measures 11.5 cm. No stones. No hydronephrosis. Spleen: The spleen is borderline enlarged measuring 14.4 cm with normal echotexture. Aorta: The abdominal aorta is nondilated. Inferior vena cava: The IVC is unremarkable. IMPRESSION: There is a 4 mm nonshadowing gallstone within the gallbladder per the gallbladder is normally distended. No wall thickening or surrounding fluid is seen.
[2023-12-19 01:26] VITALS: BP 118/87; PULSE 79; RESP 18
== END 2023-12-19 00:59 | disposition home or self-care (01) ==
LOC: EC 21:42
DX: G89.18 Other acute postprocedural pain (principal); R10.11 Right upper quadrant pain; F17.290 Nicotine dependence, other tobacco product, uncomplicated; Z91.018 Allergy to other foods; Z91.09 Other allergy status, other than to drugs and biological substances
CPT/HCPCS: 36415; 76700; 80053; 81001; 81025; 82150; 83690; 85025; 99284

== ENCOUNTER → 2023-12-18 | Day surgery (SDC) | payer OTHER ==
[~2023-12-18] MED LIST: LIDOCAINE 1% INJ 10MG/ML (20 ML MDV) ONE; PROPOFOL 10 MG/ML 20 ML VIAL IV ONE
[2023-12-18] MEDS: LACTATED RINGERS 1,000 ML IV SCH (09:25)
[2023-12-18] MEDS: LIDOCAINE 1% (10MG/ML) FOR IV START INTRADERMA ONE (09:26)
--- NOTE | 2023-12-18 09:54 | P.PCN ---
Date of Procedure: 12/18/23 Procedure(s) Performed: BRIEF HISTORY: Patient is a 23-year-old, pleasant, White female scheduled for an upper endoscopy as a part of evaluation of lungs any history of GERD for the last 2 years duration. She was initially on omeprazole 20 mg daily. No help. Recently was changed to contact is a 40 mg daily and symptoms are gradually improving. PROCEDURE PERFORMED: Esophagogastroduodenoscopy The biopsy. PREOPERATIVE DIAGNOSIS: Long-standing history of GERD IV sedation per anesthesia. PROCEDURE: After informed consent was obtained, the patient was brought into the endoscopy unit. IV sedation was administered by Anesthesia under continuous monitoring. Initially the Olympus GIF-140 video endoscope was inserted into the mouth. Esophagus intubated without any difficulty. It was gradually advanced into the stomach and duodenum and carefully examined. The bulb and the second part of the duodenum appeared normal.Biopsies were done from the duodenum to evaluate for celiac disease. The scope at this time was withdrawn to the stomach, adequately insufflated with air, and upon careful examination, mucosa of the antrum, had scattered erosions and biopsies were done from this area. Mucosa of the body, cardia and the fundus appeared normal. The scope was then withdrawn into the esophagus.Small hiatal hernia noted. The GE junction was located at 39 cm from the incisors. The esophagus appeared normal. There were no erosions or ulcerations seen and the patient tolerated the procedure well. IMPRESSION: 1.Mild antral gastritis 2.Normal-appearing esophagus with no evidence of esophagitis or Sanches's esophagus 3.Small hiatal hernia RECOMMENDATIONS: The findings of this examination were discussed with the patient As well as a family. She was advised to increase the pantoprazole 40 mg twice daily to be taken half hour before breakfast and dinnertime and follow antireflux measures. Follow up in office in 3-4 weeks.
[2023-12-18 09:58] VITALS: RESP 16; TEMP 97.2
[2023-12-18 10:43] VITALS: BP 114/75; PULSE 75
== END ==
LOC: ORWHC2ENDO 08:51
PROVIDERS: ATTEND Internal Medicine Gastroenterology
DX: K29.50 Unspecified chronic gastritis without bleeding (principal); K21.9 Gastro-esophageal reflux disease without esophagitis; K44.9 Diaphragmatic hernia without obstruction or gangrene; K90.0 Celiac disease; J45.909 Unspecified asthma, uncomplicated; F17.290 Nicotine dependence, other tobacco product, uncomplicated; F41.9 Anxiety disorder, unspecified; F32.A Depression, unspecified; Z98.890 Other specified postprocedural states; Z98.891 History of uterine scar from previous surgery; Z79.899 Other long term (current) drug therapy
CPT/HCPCS: 81025; 88305; 43239; J2001; J2704

== ENCOUNTER 2024-03-14 00:27 | Emergency (ER) | payer OTHER ==
[2024-03-14 00:38] VITALS: TEMP 98.3
--- NOTE | 2024-03-14 00:54 | ED ---
General Adult HPI - General Chief complaint: Dizziness Stated complaint: Heart Palpitations, Shortness of Breath Time Seen by Provider: 03/14/24 00:41 Source: patient, RN notes reviewed Mode of arrival: ambulatory Limitations: no limitations - Related Data Home Medications Medication Instructions Recorded Confirmed ARIPiprazole [Aripiprazole] 5 mg PO HS 12/17/23 12/17/23 Albuterol Sulfate [Ventolin HFA] 1 puff INHALATION Q4H PRN 12/17/23 12/17/23 Loratadine 10 mg PO DAILY 12/17/23 12/17/23 Pantoprazole [Protonix] 40 mg PO DAILY 12/17/23 12/17/23 Sertraline [Zoloft] 100 mg PO DAILY 12/17/23 12/17/23 hydrOXYzine HCL [Hydroxyzine HCl] 50 mg PO DIRECTED PRN 12/17/23 12/17/23 Allergies Allergy/AdvReac Type Severity Reaction Status Date / Time adhesive tape Allergy red itchy Verified 03/14/24 00:39 skin. coconut AdvReac Nausea Verified 03/14/24 00:39 Review of Systems ROS Statement: Those systems with pertinent positive or pertinent negative responses have been documented in the HPI. ROS Other: All systems not noted in ROS Statement are negative. Past Medical History Past Medical History: Asthma, GERD/Reflux Additional Past Medical History / Comment(s): allergies, feels skipping of heart beats at times. problems with hips and knees since 12 yrs old. increase in heartburn pain over the last year. History of Any Multi-Drug Resistant Organisms: None Reported Past Surgical History: Section Additional Past Surgical History / Comment(s): 2 c sections. wisdom teeth remove d on bottom. Past Anesthesia/Blood Transfusion Reactions: No Reported Reaction Past Psychological History: Anxiety, Depression Smoking Status: Vaper Past Alcohol Use History: None Reported Past Drug Use History: None Reported - Past Family History Sister(s) Family Medical History: Blood Disorder, Deep Vein Thrombosis (DVT) Additional Family Medical History / Comment(s): Patient's mother states her sister has a history of blood clots-specifics unknown. General Exam Limitations: no limitations General appearance: alert, in no apparent distress Head exam: Present: atraumatic, normocephalic, normal inspection Eye exam: Present: normal appearance, PERRL, EOMI. Absent: scleral icterus, conjunctival injection, periorbital swelling ENT exam: Present: normal exam, mucous membranes moist Neck exam: Present: normal inspection. Absent: tenderness, meningismus, lymphadenopathy Respiratory exam: Present: normal lung sounds bilaterally. Absent: respiratory distress, wheezes, rales, rhonchi, stridor Cardiovascular Exam: Present: normal rhythm, tachycardia, normal heart sounds. Absent: systolic murmur, diastolic murmur, rubs, gallop, clicks GI/Abdominal exam: Present: soft, normal bowel sounds. Absent: distended, tenderness, guarding, rebound, rigid Extremities exam: Present: normal inspection, full ROM, normal capillary refill. Absent: tenderness, pedal edema, joint swelling, calf tenderness Neurological exam: Present: alert, oriented X3 Psychiatric exam: Present: normal affect, normal mood Skin exam: Present: warm, dry, intact, normal color. Absent: rash Course Vital Signs 03/14/24 03/14/24 00:36 02:28 Temperature 98.3 F Pulse Rate 117 H 99 Respiratory 20 18 Rate Blood Pressure 157/98 127/83 O2 Sat by Pulse 96 100 Oximetry Medical Decision Making - Medical Decision Making Was pt. sent in by a medical professional or institution (, PA, BOTTLE SELECTOR, urgent care, hospital, or fdc...) When possible be specific @ -[No] Did you speak to anyone other than the patient for history (EMS, parent, family, police, friend...)? What history was obtained from this source @ -[No] Did you review nursing and triage notes (agree or disagree)? Why? @ -[I reviewed and agree with nursing and triage notes] Were old charts reviewed (outside hosp., previous admission, EMS record, old EKG, old radiological studies, urgent care reports/EKG's, fdc records)? Report findings @ -[No old charts were reviewed] Differential Diagnosis (chest pain, altered mental status, abdominal pain women, abdominal pain men, vaginal bleeding, weakness, fever, dyspnea, syncope, headache, dizziness, GI bleed, back pain, seizure, CVA, palpatations, mental health, musculoskeletal)? @ -Differential Palpitations Ventricular arrhythmias, atrial arrhythmias, myocardial infarction, anemia, thyrotoxicosis, electrolyte imbalance, hypokalemia, pulmonary embolism, pulmonary disease, drugs, alcohol, anxiety, stress.... This is not meant to be an all-inclusive list. EKG interpreted by me (3pts min.). @ -[EKG [id number] shows sinus tachycardia rate 115, OR 124, QRS 89, QT/QTc 137143] X-rays interpreted by me (1pt min.). @ -Chest x-ray shows no evidence of acute process CT interpreted by me (1pt min.). @ -[None done] U/S interpreted by me (1pt. min.). @ -[None done] What testing was considered but not performed or refused? (CT, X-rays, U/S, labs)? Why? @ -[None] What meds were considered but not given or refused? Why? @ -[None] Did you discuss the management of the patient with other professionals (professionals i.e. , PA, BOTTLE SELECTOR, lab, RT, psych nurse, social media community manager, wheel lacer and truer, teacher, air control/anti air warfare officer, case briefer)? Give summary @ -[No] Was smoking cessation discussed for >3mins.? @ -[No] Was critical care preformed (if so, how long)? @ -[No] Were there social determinants of health that impacted care today? How? (Homelessness, low income, unemployed, alcoholism, drug addiction, transportation, low edu. Level, literacy, decrease access to med. care, fci, rehab)? @ -[No] Was there de-escalation of care discussed even if they declined (Discuss DNR or withdrawal of care, Hospice)? DNR status @ -[No] What co-morbidities impacted this encounter? (DM, HTN, Smoking, COPD, CAD, Cancer, CVA, ARF, Chemo, Hep., AIDS, mental health diagnosis, sleep apnea, morbid obesity)? @ -[None] Was patient admitted / discharged? Hospital course, mention meds given and route, prescriptions, significant lab abnormalities, going to OR and other pertinent info. @ -[hospital course] Undiagnosed new problem with uncertain prognosis? @ -[No] Drug Therapy requiring intensive monitoring for toxicity (Heparin, Nitro, Ins ulin, Cardizem)? @ -[No] Were any procedures done? @ -[No] Diagnosis/symptom? @ -[default] Acute, or Chronic, or Acute on Chronic? @ -[default] Uncomplicated (without systemic symptoms) or Complicated (systemic symptoms)? @ -[default] Side effects of treatment? @ -[No] Exacerbation, Progression, or Severe Exacerbation? @ -[No] Poses a threat to life or bodily function? How? (Chest pain, [place], [place], pneumonia, PE, COPD, DKA, ARF, appy, cholecystitis, CVA, Diverticulitis, Homicidal, Suicidal, threat to staff... and all critical care pts) @ -[No] - Lab Data Result diagrams: 03/14/24 00:47 03/14/24 00:47 Lab Results 03/14/24 03/14/24 03/14/24 Range/Units 00:47 00:47 00:47 WBC 10.6 (3.8-10.6) k/uL RBC 4.71 (3.80-5.40) m/uL Hgb 13.6 (11.4-16.0) gm/dL Hct 39.7 (34.0-46.0) % MCV 84.3 (80.0-100.0) fL MCH 28.9 (25.0-35.0) pg MCHC 34.2 (31.0-37.0) g/dL RDW 13.4 (11.5-15.5) % Plt Count 248 (150-450) k/uL MPV 8.5 Neutrophils % 61 % Lymphocytes % 32 % Monocytes % 3 % Eosinophils % 2 % Basophils % 1 % Neutrophils # 6.5 (1.3-7.7) k/uL Lymphocytes # 3.4 (1.0-4.8) k/uL Monocytes # 0.4 (0-1.0) k/uL Eosinophils # 0.2 (0-0.7) k/uL Basophils # 0.1 (0-0.2) k/uL PT 10.2 (10.0-12.5) sec INR 0.9 (<1.2) Sodium 137 (137-145) mmol/L Potassium 3.9 (3.5-5.1) mmol/L Chloride 107 (98-107) mmol/L Carbon Dioxide 21 L (22-30) mmol/L Anion Gap 9 mmol/L BUN 8 (7-17) mg/dL Creatinine 0.54 (0.52-1.04) mg/dL Est GFR (CKD-EPI)AfAm >90 (>60 ml/min/1.73 sqM) Est GFR (CKD-EPI)NonAf >90 (>60 ml/min/1.73 sqM) Glucose 98 (74-99) mg/dL Calcium 9.3 (8.4-10.2) mg/dL Magnesium 1.7 (1.6-2.3) mg/dL Total Bilirubin 0.3 (0.2-1.3) mg/dL AST 14 (14-36) U/L ALT 11 (4-34) U/L Alkaline Phosphatase 93 (38-126) U/L Troponin I (0.000-0.034) ng/mL Total Protein 6.5 (6.3-8.2) g/dL Albumin 3.8 (3.5-5.0) g/dL Urine Color Urine Appearance (Clear) Urine pH (5.0-8.0) Ur Specific Campbell (1.001-1.035) Urine Protein (Negative) Urine Glucose (UA) (Negative) Urine Ketones (Negative) Urine Blood (Negative) Urine Nitrite (Negative) Urine Bilirubin (Negative) Urine Urobilinogen (<2.0) mg/dL Ur Leukocyte Esterase (Negative) 03/14/24 03/14/24 Range/Units 00:47 00:53 WBC (3.8-10.6) k/uL RBC (3.80-5.40) m/uL Hgb (11.4-16.0) gm/dL Hct (34.0-46.0) % MCV (80.0-100.0) fL MCH (25.0-35.0) pg MCHC (31.0-37.0) g/dL RDW (11.5-15.5) % Plt Count (150-450) k/uL MPV Neutrophils % % Lymphocytes % % Monocytes % % Eosinophils % % Basophils % % Neutrophils # (1.3-7.7) k/uL Lymphocytes # (1.0-4.8) k/uL Monocytes # (0-1.0) k/uL Eosinophils # (0-0.7) k/uL Basophils # (0-0.2) k/uL PT (10.0-12.5) sec INR (<1.2) Sodium (137-145) mmol/L Potassium (3.5-5.1) mmol/L Chloride (98-107) mmol/L Carbon Dioxide (22-30) mmol/L Anion Gap mmol/L BUN (7-17) mg/dL Creatinine (0.52-1.04) mg/dL Est GFR (CKD-EPI)AfAm (>60 ml/min/1.73 sqM) Est GFR (CKD-EPI)NonAf (>60 ml/min/1.73 sqM) Glucose (74-99) mg/dL Calcium (8.4-10.2) mg/dL Magnesium (1.6-2.3) mg/dL Total Bilirubin (0.2-1.3) mg/dL AST (14-36) U/L ALT (4-34) U/L Alkaline Phosphatase (38-126) U/L Troponin I <0.012 (0.000-0.034) ng/mL Total Protein (6.3-8.2) g/dL Albumin (3.5-5.0) g/dL Urine Color Colorless Urine Appearance Clear (Clear) Urine pH 7.0 (5.0-8.0) Ur Specific Campbell 1.001 (1.001-1.035) Urine Protein Negative (Negative) Urine Glucose (UA) Negative (Negative) Urine Ketones Negative (Negative) Urine Blood Negative (Negative) Urine Nitrite Negative (Negative) Urine Bilirubin Negative (Negative) Urine Urobilinogen <2.0 (<2.0) mg/dL Ur Leukocyte Esterase Negative (Negative) Disposition Clinical Impression: Palpitations Disposition: HOME SELF-CARE Condition: Stable Instructions (If sedation given, give patient instructions): Heart Palpitations (ED) Additional Instructions: Please follow up with ORNAMENTAL IRONWORKING SUPERVISOR. Return to the emergency department for new or worsening symptoms. Is patient prescribed a controlled substance at d/c from ED?: No Referrals: Brett Tsang MD [Primary Care Provider] - 1-2 days
[2024-03-14 01:20] LABS: Basophils # (A) 0.1 k/uL (0-0.2); Basophils % (A) 1 %; Eosinophils # (A) 0.2 k/uL (0-0.7); Eosinophils % (A) 2 %; HCT 39.7 % (34.0-46.0); HGB 13.6 gm/dL (11.4-16.0); Lymphocytes # (A) 3.4 k/uL (1.0-4.8); Lymphocytes % (A) 32 %; MCH 28.9 pg (25.0-35.0); MCHC 34.2 g/dL (31.0-37.0); MCV 84.3 fL (80.0-100.0); Mean Platelet Volume 8.5; Monocytes # (A) 0.4 k/uL (0-1.0); Monocytes % (A) 3 %; Neutrophils # (A) 6.5 k/uL (1.3-7.7); Neutrophils % (A) 61 %; Platelet Count 248 k/uL (150-450); RBC 4.71 m/uL (3.80-5.40); RDW 13.4 % (11.5-15.5); WBC 10.6 k/uL (3.8-10.6)
[2024-03-14 01:21] LABS: Appearance,Urine Clear (Clear); Bilirubin,Urine Negative (Negative); Blood,Urine Negative (Negative); Color,Urine Colorless; Glucose,Urine (UA) Negative (Negative); Ketones,Urine Negative (Negative); Leukocyte Esterase,Urine Negative (Negative); Nitrite,Urine Negative (Negative); Protein,Urine Negative (Negative); Specific Gravity,Urine 1.001 (1.001-1.035); Urobilinogen,Urine <2.0 mg/dL (<2.0)
[2024-03-14] MEDS: SODIUM CHLORIDE 0.9% 2,000 ML IV ONE (01:25)
[2024-03-14 01:32] LABS: INR 0.9 (<1.2); Prothrombin Time 10.2 sec (10.0-12.5)
[2024-03-14 02:00] LABS: ALT 11 U/L (4-34); AST 14 U/L (14-36); African American GFR (CKD) >90 (>60 ml/min/1.73 sqM); Albumin 3.8 g/dL (3.5-5.0); Alkaline Phosphatase 93 U/L (38-126); Anion Gap 9 mmol/L; Blood Urea Nitrogen 8 mg/dL (7-17); Calcium 9.3 mg/dL (8.4-10.2); Carbon Dioxide 21 mmol/L (22-30); Chloride 107 mmol/L (98-107); Glucose 98 mg/dL (74-99); Magnesium 1.7 mg/dL (1.6-2.3); Non-African American GFR(CKD) >90 (>60 ml/min/1.73 sqM); Potassium 3.9 mmol/L (3.5-5.1); Sodium 137 mmol/L (137-145); Total Bilirubin 0.3 mg/dL (0.2-1.3); Total Protein 6.5 g/dL (6.3-8.2)
--- NOTE | 2024-03-14 02:14 | XR ---
EXAM: XR Chest, 2 Views CLINICAL HISTORY: pain TECHNIQUE: Frontal and lateral views of the chest. COMPARISON: No relevant prior studies available. FINDINGS: Lungs: Unremarkable. No consolidation. Pleural space: Unremarkable. Mediastinum: Unremarkable. Normal mediastinal contour. Bones/joints: No acute findings. IMPRESSION: No acute findings.
[2024-03-14 02:29] VITALS: BP 127/83; PULSE 99; RESP 18
[2024-03-14 02:40] LABS: HCG,Quantitative Serum 54960.4 mIU/mL
== END 2024-03-14 03:54 | disposition home or self-care (01) ==
LOC: EC 00:27
DX: R00.2 Palpitations (principal); R00.0 Tachycardia, unspecified; F17.290 Nicotine dependence, other tobacco product, uncomplicated; Z91.09 Other allergy status, other than to drugs and biological substances; Z91.018 Allergy to other foods
CPT/HCPCS: 36415; 71046; 80053; 81003; 83735; 84484; 84702; 85025; 85610; 87086; 93005; 96360; 96361; 99285

== ENCOUNTER 2024-04-14 00:28 | Emergency (ER) | payer OTHER ==
[2024-04-14] MEDS ORDERED: SODIUM CHLORIDE 0.9% 1,000 ML BAG ONE (02:00)
--- NOTE | 2024-05-17 11:17 | XR ---
Site ID [facility] Nidia Haskins ID [id number] Order # Procedure XR chest 1V EXAMINATION TYPE: XR chest 2V DATE OF EXAM: 04/14/2024 1:22 PM CLINICAL INDICATION: CHEST PAINS SOB PT IS 17 WEEKS SHIELDED COMPARISON: THIS EXAM WAS READ DURING PACS DOWNTIME, NO PRIORS AVAILABLE. TECHNIQUE: XR chest 2V Frontal view of the chest. FINDINGS: Lungs/Pleura: There is no evidence of pleural effusion, focal consolidation, or pneumothorax. Pulmonary vascularity: Unremarkable. Heart/mediastinum: Cardiomediastinal silhouette is unremarkable. Musculoskeletal: No acute osseous pathology. Other findings: None Lines/Tubes: IMPRESSION: No acute cardiopulmonary disease/process.
== END 2024-04-14 06:45 | disposition home or self-care (01) ==
LOC: EC 00:28
CPT/HCPCS: 71046; 93005; 99285

== ENCOUNTER 2024-06-10 05:50 | Outpatient (CLI) | payer OTHER ==
[2024-06-10 06:50] LABS: Appearance,Urine Cloudy (Clear); Bacteria,Urine Occasional /hpf; Bilirubin,Urine Negative (Negative); Blood,Urine Negative (Negative); Color,Urine Colorless; Glucose,Urine (UA) Negative (Negative); Ketones,Urine Negative (Negative); Leukocyte Esterase,Urine Moderate (Negative); Nitrite,Urine Negative (Negative); PH, Urine 6.5 (5.0-8.0); Protein,Urine Negative (Negative); RBC,Urine <1 /hpf (0-5); Specific Gravity,Urine 1.002 (1.001-1.035); Squamous Epithelial Cell,Urine 5 /hpf (0-4); Urobilinogen,Urine <2.0 mg/dL (<2.0); WBC,Urine 2 /hpf (0-5)
--- NOTE | 2024-06-10 08:01 | US ---
EXAMINATION TYPE: US gallbladder DATE OF EXAM: 06/10/2024 COMPARISON: US 12/18/2023 CLINICAL INDICATION: Female, 23 years old with history of US liver and gallbladder. upper right abd p ain; Patient feels aches in the RUQ x 2.5 days. Patient is 25 weeks . TECHNIQUE: Grayscale and color Doppler imaging of the right upper quadrant. FINDINGS: EXAM MEASUREMENTS: Liver Length: 17.7 cm Gallbladder Wall: 0.18 cm CBD: 0.33 cm Right Kidney: 11.8 x 6.0 x 5.4 cm CONTINUITY PERSON NOTES: Limited due to gas. Pancreas: Portions seen appear wnl. Tail not seen. Liver: *Measures upper limits. Slightly coarse in echotexture. Gallbladder: Hyperechoic focus seen, possibly attached to gallbladder wall- did not appear to move when patient turns LLD: 0.5 x 0.4 x 0.4 cm. Evidence for sonographic Wills's sign: No CBD: Portion appears wnl Right Kidney: *Renal pelvis appears prominent. IMPRESSION: 1. Gallbladder polyp versus appearing gallstone. 2. Probable extrarenal pelvis. [facility], , 06/10/2024 7:59 AM
[2024-06-10 08:14] LABS: Basophils % (A) 0 %; Eosinophils # (A) 0.1 k/uL (0-0.7); Eosinophils % (A) 1 %; HCT 35.1 % (34.0-46.0); HGB 11.5 gm/dL (11.4-16.0); Lymphocytes # (A) 1.9 k/uL (1.0-4.8); Lymphocytes % (A) 19 %; MCH 27.8 pg (25.0-35.0); MCHC 32.8 g/dL (31.0-37.0); MCV 84.9 fL (80.0-100.0); Mean Platelet Volume 7.7; Monocytes # (A) 0.4 k/uL (0-1.0); Monocytes % (A) 4 %; Neutrophils # (A) 7.4 k/uL (1.3-7.7); Neutrophils % (A) 75 %; Platelet Count 248 k/uL (150-450); RBC 4.13 m/uL (3.80-5.40); RDW 13.5 % (11.5-15.5)
[2024-06-10 08:27] LABS: ALT 12 U/L (4-34); AST 13 U/L (14-36)
[2024-06-10 09:14] VITALS: BP 134/77; PULSE 116; RESP 17; TEMP 97.2
== END 2024-06-10 08:45 | disposition home or self-care (01) ==
LOC: FBPOP 05:50
PROVIDERS: ATTEND Obstetrics & Gynecology
CPT/HCPCS: 76705; 81001; 84450; 84460; 85025; 99213

== ENCOUNTER 2024-07-25 03:02 | Outpatient (CLI) | payer OTHER ==
[2024-07-25 03:41] VITALS: BP 147/69; PULSE 120; RESP 16; TEMP 97.4
--- NOTE | 2024-09-30 15:41 | P.MSEPDOC ---
Presenting Problems - Arrival Data Date of Arrival on Unit: 07/25/24 Time of Arrival on Unit: 02:00 Mode of Transport: Wheelchair - Complaint OB-Reason for Admission/Chief Complaint: Decreased Movement Medical History - Information : 3 Para: 3 Term: 3 : 0 Abortions: Spontaneous or Elective: 0 Number of Living Children: 3 - Gestational Age Gestational Age by ILSA (wks/days): 31 Weeks and 4 Days Review of Systems - Review of Systems Constitutional: No problems Breast: No problems ENT: No problems Cardiovascular: No problems Respiratory: No problems Gastrointestinal: No problems Genitourinary: No problems Musculoskeletal: No problems Neurological: No problems Skin: No problems Vital Signs - Temperature Temperature: 97.4 F Temperature Source: Temporal Artery Scan - Pulse Pulse Oximetery Pulse Rate: 120 Pulse Assessment Method: Pulse Oximetry - Respirations Respiratory Rate: 16 Oxygen Delivery Method: Room Air - Blood Pressure Right Arm Blood Pressure: 147/69 Blood Pressure Mean: 95 Blood Pressure Source: Automatic Cuff Medical Screen Scoring - Assessment - Baby A Baseline FHR: 150 Heart Rate - NICHD Category: Category I (Normal) NST: Reactive Physician Notification - Physician Notified Physician Notified Date: 07/25/24 Physician Notified Time: 03:28 Physician: Ely Hector - Notification Comment Comment: Spoke with Dr. Hector, pt 31 weeks 4 days presents with decreased movementsince this afternoon. NST reactive with CAT 1 tones. Pt feeling positive movement now in triage. VItals stable. Orders recieved to d/c home Maternal Triage Index - Maternal Triage Index Presenting for scheduled procedure w/no complaint: No - Stat/Priority 1 Stat Priority 1: No - Urgent/Priority 2 Urgent Priority 2: Yes Provider Notified: Ely Hector Provider Notified Time: 03:28 Criteria Met for Priority 2: pt 31 weeks 4 days presents with decreased movementsince this afternoon. NST reactive with CAT 1 tones. Pt feeling positive movement now in triage Disposition - Disposition OB Disposition: Discharge to home Discharge Date: 07/25/24 Discharge Time: 03:33 I agree with the RN Medical Screening Exam: Yes Physician's MSE Comment: I have neither seen nor examined the patient Case reviewed; plan agreed upon as documented in EMR&OBIX.: Yes Diagnosis: DECREASED MOVEMENTS, THIRD TRIMESTER, FETUS 1
== END 2024-07-25 03:33 | disposition home or self-care (01) ==
LOC: FBPOP 03:02
PROVIDERS: ATTEND Obstetrics & Gynecology
DX: O36.8130 Decreased fetal movements, third trimester, not applicable or unspecified (principal); Z3A.31 31 weeks gestation of pregnancy
CPT/HCPCS: 59025; G0463; 99213

== ENCOUNTER → 2024-08-22 | Outpatient (CLI) | payer OTHER ==
--- NOTE | 2024-08-22 12:39 | P.SLEEP ---
History of Present Illness DATE: 08/22/2024 CONSULTATION/NEW PATIENT EVALUATION HISTORY OF PRESENT ILLNESS/SLEEP-WAKE EVALUATION: 24-year-old lady had been evaluated in the sleep center for possible obstructive sleep apnea hypopnea syndrome. SLEEP SCHEDULE: Usually sleep schedule which is very irregular from 115 AM until 9 AM1 PM. FALLING ASLEEP: Patient has difficulties with falling asleep. DURING SLEEP: Patient snores and wakes up from sleep 4 times with 1 episode of nocturia. Positive history of witnessed episodes of stop breathing during the sleep. No history of hypnogogical hallucinations, sleep paralysis, or cataplexy. DURING THE DAY/WAKE STATE: In the morning patient wake up tired, has difficulties to pay attention, has problems with memory, concentration, irritability and anxiety. Weaver sleepiness scale increased to 12. Patient may take 1 nap around 1 PM. PAST MEDICAL HISTORY: Presently 35 weeks. PAST SURGICAL HISTORY: Status post 2 C-sections. MEDICATIONS: Please see below. SOCIAL HISTORY: Please see below, alcohol consumption occasional. FAMILY HISTORY: Please see below. REVIEW OF SYSTEMS: Snoring, breathing pauses, sleepiness. No fevers. No double vision. No recent chest pain. No shortness of breath. No abdominal pain. No bleeding episodes. No blood in urine. No seizure episodes. PHYSICAL EXAMINATION: GENERAL: A pleasant patient without any distress. VITAL SIGNS: Please see below, weight 261.4 pounds, BMI 40.6. HEENT: PERRLA, EOMI. Evaluation of oropharynx showed tongue protrudes midline, low position of soft palate Mallampati 3. NECK: Supple. No JVD. Thyroid is not palpable. 16-3/4 inches in circumference. LUNGS: Clear to percussion and to auscultation. Good air exchange. No wheezing or rhonchi. HEART: S1, S2 regular. No murmurs, gallops or rubs. ABDOMEN: Soft and nontender. Bowel sounds are present. No organomegaly appreciated. EXTREMITIES: No clubbing or cyanosis. TABLE TENDER: Awake, alert, and oriented x3. Cranial nerves 2 to 7 intact. There is no fasciculation or atrophy noted. No focal deficits observed. ASSESSMENT: 1. Snoring, witnessed episodes of stop breathing during the sleep, low position of soft palate Mallampati 3, wide neck 16 and three-quarter inches in circumference, sleepiness with Weaver Sleepiness Scale 12. Obstructive sleep apnea hypopnea syndrome. 2. 35 weeks, due 09/16/2024. 3. Obesity. 4. Status post 2 C-sections. PLAN: 1. Polysomnography for evaluation of patient's breathing during sleep. 2. Following plan after reading sleep study. 3. Preferable position during sleep on the side. 4. No driving if patient feels any sleepiness. Patient is aware of civil and criminal liability for unsafe driving. 5. Sleep hygiene with regular sleep time for at least 7.5-8 hours. 6. Watching and losing weight. Thank you very much for referring this patient for consultation. Sincerely, Jacky Cage MD, PhD, FAASM. Diplomat of [employer], Sleep Medicine Board by [employer] [facility] [place] Past Medical History Past Medical History: Asthma, GERD/Reflux Additional Past Medical History / Comment(s): allergies, feels skipping of heart beats at times. problems with hips and knees since 12 yrs old. increase in heartburn pain over the last year. History of Any Multi-Drug Resistant Organisms: None Reported Past Surgical History: Section Additional Past Surgical History / Comment(s): 2 c sections. wisdom teeth removed on bottom. Past Anesthesia/Blood Transfusion Reactions: No Reported Reaction Past Psychological History: Anxiety, Depression Smoking Status: Never smoker Past Alcohol Use History: None Reported Additional Past Alcohol Use History / Comment(s): vapes, fills every 2-3 weeks. Past Drug Use History: None Reported - Past Family History Sister(s) Family Medical History: Blood Disorder, Deep Vein Thrombosis (DVT) Additional Family Medical History / Comment(s): Patient's mother states her sister has a history of blood clots-specifics unknown. Medications and Allergies Home Medications Medication Instructions Recorded Confirmed Type Vit No.179/Iron/Folic 1 tab PO DAILY 06/10/24 08/22/24 History [ Tablet] Aspirin [Adult Low Dose Aspirin EC] 81 mg PO DAILY 08/22/24 08/22/24 History Allergies Allergy/AdvReac Type Severity Reaction Status Date / Time adhesive tape Allergy red itchy Verified 03/14/24 00:39 skin. Sleep Note - Sleep Data ESS Total: 12 - Sleep Note Sleep Note: Temperature: Pulse Rate: Respiratory Rate: Blood Pressure: SpO2: Height: Weight: BMI: Neck Circumference:
== END ==
LOC: 3 N SLEEP 10:51
PROVIDERS: ATTEND Internal Medicine
DX: G47.33 Obstructive sleep apnea (adult) (pediatric) (principal); E66.9 Obesity, unspecified; Z98.890 Other specified postprocedural states; Z91.048 Other nonmedicinal substance allergy status; Z68.35 Body mass index [BMI] 35.0-35.9, adult
CPT/HCPCS: 99211

== ENCOUNTER 2024-09-05 13:47 | Outpatient (CLI) | payer OTHER ==
[2024-09-05 15:11] VITALS: BP 123/76; PULSE 98; RESP 16; TEMP 97.1
== END 2024-09-05 15:03 | disposition home or self-care (01) ==
LOC: FBPOP 13:47
PROVIDERS: ATTEND Obstetrics & Gynecology
DX: Z53.9 Procedure and treatment not carried out, unspecified reason (principal)
CPT/HCPCS: 59025; G0463; 99213

== ENCOUNTER 2024-09-05 22:30 | Emergency (ER) | payer OTHER ==
[2024-09-05 22:37] VITALS: TEMP 98.1
[2024-09-05 23:06] LABS: Basophils % (A) 0 %; Eosinophils # (A) 0.1 k/uL (0-0.7); Eosinophils % (A) 1 %; HCT 32.3 % (34.0-46.0); HGB 10.9 gm/dL (11.4-16.0); Hypochromasia Slight; Lymphocytes % (A) 23 %; MCH 26.1 pg (25.0-35.0); MCHC 33.8 g/dL (31.0-37.0); MCV 77.3 fL (80.0-100.0); Mean Platelet Volume 8.6; Monocytes # (A) 0.4 k/uL (0-1.0); Monocytes % (A) 4 %; Neutrophils # (A) 6.1 k/uL (1.3-7.7); Neutrophils % (A) 70 %; Platelet Count 271 k/uL (150-450); RBC 4.19 m/uL (3.80-5.40); RDW 14.6 % (11.5-15.5); WBC 8.8 k/uL (3.8-10.6)
[2024-09-05 23:16] LABS: ALT 11 U/L (4-34); AST 13 U/L (14-36); African American GFR (CKD) >90 (>60 ml/min/1.73 sqM); Albumin 3.1 g/dL (3.5-5.0); Alkaline Phosphatase 143 U/L (38-126); Anion Gap 10 mmol/L; Blood Urea Nitrogen 5 mg/dL (7-17); Calcium 8.5 mg/dL (8.4-10.2); Carbon Dioxide 18 mmol/L (22-30); Chloride 108 mmol/L (98-107); Glucose 145 mg/dL (74-99); Non-African American GFR(CKD) >90 (>60 ml/min/1.73 sqM); Potassium 3.9 mmol/L (3.5-5.1); Sodium 136 mmol/L (137-145); Total Bilirubin 0.1 mg/dL (0.2-1.3); Total Protein 5.7 g/dL (6.3-8.2)
--- NOTE | 2024-09-05 23:22 | ED ---
General Adult HPI - General Chief complaint: Anxiety Stated complaint: 37 weeks preg,Heart flutter Time Seen by Provider: 09/05/24 22:50 Source: patient, RN notes reviewed Mode of arrival: ambulatory Limitations: no limitations - History of Present Illness Initial comments: quick note- this is a 24 year old female with no significant medical history, G3 T2A0L3, presented to the emergency department at 37 weeks gestation for complaints of heart fluttering. Patient states over the past 24 hours she has been experiencing an intermittent fluttering sensation in her mid chest that will last for approximately 1 heartbeat associated shortness of breath. Currently, she is denying chest pain, shortness of breath, abdominal pain, vaginal bleeding. Patient was evaluated earlier by L&D where heart tones were conducted with no abnormalities. - Related Data Home Medications Medication Instructions Recorded Confirmed Vit No.179/Iron/Folic 1 tab PO DAILY 06/10/24 09/05/24 [ Tablet] Aspirin [Adult Low Dose Aspirin EC] 81 mg PO DAILY 08/22/24 09/05/24 Allergies Allergy/AdvReac Type Severity Reaction Status Date / Time adhesive tape Allergy red itchy Verified 09/05/24 14:14 skin. Review of Systems ROS Statement: Those systems with pertinent positive or pertinent negative responses have been documented in the HPI. ROS Other: All systems not noted in ROS Statement are negative. Past Medical History Past Medical History: Asthma, GERD/Reflux Additional Past Medical History / Comment(s): allergies, feels skipping of heart beats at times. problems with hips and knees since 12 yrs old. increase in heartburn pain over the last year. History of Any Multi-Drug Resistant Organisms: None Reported Past Surgical History: Section Additional Past Surgical History / Comment(s): 2 c sections. wisdom teeth removed on bottom. Past Anesthesia/Blood Transfusion Reactions: No Reported Reaction Past Psychological History: Anxiety, Depression Smoking Status: Never smoker Past Alcohol Use History: None Reported Past Drug Use History: None Reported - Past Family History Sister(s) Family Medical History: Blood Disorder, Deep Vein Thrombosis (DVT) Additional Family Medical History / Comment(s): Patient's mother states her sister has a history of blood clots-specifics unknown. General Exam - General Exam Comments Initial Comments: Visual Physical Exam Vital signs reviewed General: Well-appearing, nontoxic, no acute distress. Head: Normocephalic, atraumatic Eyes: PERRLA, EOMI ENT: Airway patent Chest: Nonlabored breathing Skin: No visual rash, normal skin tone Neuro: Alert and oriented 3 Musculoskeletal: No gross abnormalities Limitations: no limitations General appearance: alert, in no apparent distress ENT exam: Present: normal exam, mucous membranes moist Neck exam: Present: normal inspection. Absent: tenderness, meningismus, lymphadenopathy Respiratory exam: Present: normal lung sounds bilaterally, chest wall tenderness (substernal to palpation ). Absent: respiratory distress, wheezes, rales, rhonchi, stridor Cardiovascular Exam: Present: regular rate, normal rhythm, normal heart sounds. Absent: systolic murmur, diastolic murmur, rubs, gallop, clicks GI/Abdominal exam: Present: soft, distended (- 37 weeks), normal bowel sounds. Absent: tenderness, guarding, rebound, rigid Extremities exam: Present: normal inspection, full ROM, normal capillary refill. Absent: tenderness, pedal edema, joint swelling, calf tenderness Course Vital Signs 09/05/24 09/06/24 22:31 00:36 Temperature 98.1 F Pulse Rate 115 H 103 H Respiratory 19 20 Rate Blood Pressure 127/86 121/80 O2 Sat by Pulse 98 94 L Oximetry Medical Decision Making - Medical Decision Making Was pt. sent in by a medical professional or institution (JAY Gil, TELEVISION CABINET FINISHER, urgent care, hospital, or senior living...) When possible be specific @ -No Did you speak to anyone other than the patient for history (EMS, parent, family, police, friend...)? What history was obtained from this source @ -No Did you review nursing and triage notes (agree or disagree)? Why? @ -I reviewed and agree with nursing and triage notes Were old charts reviewed (outside hosp., previous admission, EMS record, old EKG, old radiological studies, urgent care reports/EKG's, senior living records)? Report findings @ -No old charts were reviewed Differential Diagnosis (chest pain, altered mental status, abdominal pain women, abdominal pain men, vaginal bleeding, weakness, fever, dyspnea, syncope, headache, dizziness, GI bleed, back pain, seizure, CVA, palpatations, mental health, musculoskeletal)? @ -Differential Chest Pain: Stable Angina, Unstable Angina, STEMI, NSTEMI Aortic Dissection, Pneumothorax, Musculoskeletal, Esophageal Spasm GERD, Cholecystitis, Pancreatitis, Zoster, this is not meant to be an all-inclusive list. EKG interpreted by me (3pts min.). @ -Completed at 2241 sinus tachycardia with a ventricular rate of 108, WA interval 145, QTc 378, QRS 90 X-rays interpreted by me (1pt min.). @ -None done CT interpreted by me (1pt min.). @ -None done U/S interpreted by me (1pt. min.). @ -None done What testing was considered but not performed or refused? (CT, X-rays, U/S, labs)? Why? @ -None What meds were considered but not given or refused? Why? @ -None Did you discuss the management of the patient with other professionals (professionals i.e. , PA, TELEVISION CABINET FINISHER, lab, RT, psych nurse, drug abuse social worker, refrigerating oiler, teacher, geographic area intelligence officer, correctional case records supervisor)? Give summary @ -No Was smoking cessation discussed for >3mins.? @ -No Was critical care preformed (if so, how long)? @ -No Were there social determinants of health that impacted care today? How? (Homelessness, low income, unemployed, alcoholism, drug addiction, transportation, low edu. Level, literacy, decrease access to med. care, residential, rehab)? @ -No Was there de-escalation of care discussed even if they declined (Discuss DNR or withdrawal of care, Hospice)? DNR status @ -No What co-morbidities impacted this encounter? (DM, HTN, Smoking, COPD, CAD, Cancer, CVA, ARF, Chemo, Hep., AIDS, mental health diagnosis, sleep apnea, morbid obesity)? @ -None Was patient admitted / discharged? Hospital course, mention meds given and route, prescriptions, significant lab abnormalities, going to OR and other pertinent info. @ -Discharge. 24-year-old female presenting with heart palpitations. Patient noted to be tachycardic on arrival. EKG is in sinus rhythm. Patient will undergo cardiac evaluation. Patient is mildly anemic with a hemoglobin 10.9 and hematocrit of 32.3. CMP within normal limits, troponin and TSH within normal nonelevated. Urinalysis no signs of infection. Patient states that she has had 1 symptom of heart fluttering sensation in the emergency department, states that she is feeling well. There is minimal clinical suspicion for adverse cardiac event. Additionally, patient has follow-up with OB in the morning for further evaluation. Discussed with Dr. Echols Undiagnosed new problem with uncertain prognosis? @ -No Drug Therapy requiring intensive monitoring for toxicity (Heparin, Nitro, Insulin, Cardizem)? @ -No Were any procedures done? @ -No Diagnosis/symptom? @ -heart palpitations, anxiety Acute, or Chronic, or Acute on Chronic? @ -acute Uncomplicated (without systemic symptoms) or Complicated (systemic symptoms)? @ -uncomplicated Side effects of treatment? @ -No Exacerbation, Progression, or Severe Exacerbation? @ -No Poses a threat to life or bodily function? How? (Chest pain, USA, IA, pneumonia, PE, COPD, DKA, ARF, appy, cholecystitis, CVA, Diverticulitis, Homicidal, Suicidal, threat to staff... and all critical care pts) @ -No - Lab Data Result diagrams: 09/05/24 23:00 09/05/24 23:00 Lab Results 09/05/24 09/05/24 09/05/24 Range/Units 23:00 23:00 23:00 WBC 8.8 (3.8-10.6) k/uL RBC 4.19 (3.80-5.40) m/uL Hgb 10.9 L (11.4-16.0) gm/dL Hct 32.3 L (34.0-46.0) % MCV 77.3 L (80.0-100.0) fL MCH 26.1 (25.0-35.0) pg MCHC 33.8 (31.0-37.0) g/dL RDW 14.6 (11.5-15.5) % Plt Count 271 (150-450) k/uL MPV 8.6 Neutrophils % 70 % Lymphocytes % 23 % Monocytes % 4 % Eosinophils % 1 % Basophils % 0 % Neutrophils # 6.1 (1.3-7.7) k/uL Lymphocytes # 2.0 (1.0-4.8) k/uL Monocytes # 0.4 (0-1.0) k/uL Eosinophils # 0.1 (0-0.7) k/uL Basophils # 0.0 (0-0.2) k/uL Hypochromasia Slight Sodium 136 L (137-145) mmol/L Potassium 3.9 (3.5-5.1) mmol/L Chloride 108 H (98-107) mmol/L Carbon Dioxide 18 L (22-30) mmol/L Anion Gap 10 mmol/L BUN 5 L (7-17) mg/dL Creatinine 0.51 L (0.52-1.04) mg/dL Est GFR (CKD-EPI)AfAm >90 (>60 ml/min/1.73 sqM) Est GFR (CKD-EPI)NonAf >90 (>60 ml/min/1.73 sqM) Glucose 145 H (74-99) mg/dL Calcium 8.5 (8.4-10.2) mg/dL Total Bilirubin 0.1 L (0.2-1.3) mg/dL AST 13 L (14-36) U/L ALT 11 (4-34) U/L Alkaline Phosphatase 143 H (38-126) U/L Troponin I <0.012 (0.000-0.034) ng/mL Total Protein 5.7 L (6.3-8.2) g/dL Albumin 3.1 L (3.5-5.0) g/dL TSH (0.465-4.680) mIU/L Urine Color Urine Appearance (Clear) Urine pH (5.0-8.0) Ur Specific Lou[place] (1.001-1.035) Urine Protein (Negative) Urine Glucose (UA) (Negative) Urine Ketones (Negative) Urine Blood (Negative) Urine Nitrite (Negative) Urine Bilirubin (Negative) Urine Urobilinogen (<2.0) mg/dL Ur Leukocyte Esterase (Negative) 09/05/24 09/06/24 Range/Units 23:00 00:14 WBC (3.8-10.6) k/uL RBC (3.80-5.40) m/uL Hgb (11.4-16.0) gm/dL Hct (34.0-46.0) % MCV (80.0-100.0) fL MCH (25.0-35.0) pg MCHC (31.0-37.0) g/dL RDW (11.5-15.5) % Plt Count (150-450) k/uL MPV Neutrophils % % Lymphocytes % % Monocytes % % Eosinophils % % Basophils % % Neutrophils # (1.3-7.7) k/uL Lymphocytes # (1.0-4.8) k/uL Monocytes # (0-1.0) k/uL Eosinophils # (0-0.7) k/uL Basophils # (0-0.2) k/uL Hypochromasia Sodium (137-145) mmol/L Potassium (3.5-5.1) mmol/L Chloride (98-107) mmol/L Carbon Dioxide (22-30) mmol/L Anion Gap mmol/L BUN (7-17) mg/dL Creatinine (0.52-1.04) mg/dL Est GFR (CKD-EPI)AfAm (>60 ml/min/1.73 sqM) Est GFR (CKD-EPI)NonAf (>60 ml/min/1.73 sqM) Glucose (74-99) mg/dL Calcium (8.4-10.2) mg/dL Total Bilirubin (0.2-1.3) mg/dL AST (14-36) U/L ALT (4-34) U/L Alkaline Phosphatase (38-126) U/L Troponin I (0.000-0.034) ng/mL Total Protein (6.3-8.2) g/dL Albumin (3.5-5.0) g/dL TSH 1.500 (0.465-4.680) mIU/L Urine Color Colorless Urine Appearance Clear (Clear) Urine pH 6.5 (5.0-8.0) Ur Specific Louin 1.005 (1.001-1.035) Urine Protein Negative (Negative) Urine Glucose (UA) Negative (Negative) Urine Ketones Negative (Negative) Urine Blood Negative (Negative) Urine Nitrite Negative (Negative) Urine Bilirubin Negative (Negative) Urine Urobilinogen <2.0 (<2.0) mg/dL Ur Leukocyte Esterase Negative (Negative) Disposition Clinical Impression: Heart palpitations Disposition: HOME SELF-CARE Condition: Stable Instructions (If sedation given, give patient instructions): Heart Palpitations (ED) Additional Instructions: Please return to the Emergency Department if symptoms worsen or any other concerns. Is patient prescribed a controlled substance at d/c from ED?: No Referrals: None,Stated [Primary Care Provider] - 1-2 days Time of Disposition: 00:30
[2024-09-06 00:30] LABS: Appearance,Urine Clear (Clear); Bilirubin,Urine Negative (Negative); Blood,Urine Negative (Negative); Color,Urine Colorless; Glucose,Urine (UA) Negative (Negative); Ketones,Urine Negative (Negative); Leukocyte Esterase,Urine Negative (Negative); Nitrite,Urine Negative (Negative); PH, Urine 6.5 (5.0-8.0); Protein,Urine Negative (Negative); Specific Gravity,Urine 1.005 (1.001-1.035); Urobilinogen,Urine <2.0 mg/dL (<2.0)
[2024-09-06] MEDS: SODIUM CHLORIDE 0.9% 2,000 ML IV STA (00:33)
[2024-09-06 00:37] VITALS: BP 121/80; PULSE 103; RESP 20
== END 2024-09-06 00:36 | disposition home or self-care (01) ==
LOC: EC 22:30
DX: O99.513 Diseases of the respiratory system complicating pregnancy, third trimester (principal); R00.2 Palpitations; O99.343 Other mental disorders complicating pregnancy, third trimester; F41.9 Anxiety disorder, unspecified; Z88.8 Allergy status to other drugs, medicaments and biological substances; Z3A.37 37 weeks gestation of pregnancy
CPT/HCPCS: 36415; 80053; 81003; 84443; 84484; 85025; 93005; 99285

== ENCOUNTER 2024-09-10 18:40 | Outpatient (CLI) | payer OTHER ==
[2024-09-10 19:43] VITALS: BP 124/74; PULSE 117; RESP 16
--- NOTE | 2024-10-23 12:37 | P.MSEPDOC ---
Presenting Problems - Arrival Data Date of Arrival on Unit: 09/10/24 Time of Arrival on Unit: 18:40 Mode of Transport: Ambulatory - Complaint OB-Reason for Admission/Chief Complaint: Decreased Movement Comment: pt to traige with c/o decreased movement, states has felt movement today, but not as much as normal Medical History - Information : 3 Para: 3 Term: 3 : 0 Abortions: Spontaneous or Elective: 0 Number of Living Children: 3 - Gestational Age Gestational Age by ILSA (wks/days): 38 Weeks and 2 Days - History Complications: Prior Review of Systems - Review of Systems Constitutional: No problems Breast: No problems ENT: No problems Cardiovascular: No problems Respiratory: No problems Gastrointestinal: No problems Genitourinary: No problems Musculoskeletal: No problems Neurological: No problems Skin: No problems Vital Signs - Pulse Pulse Oximetery Pulse Rate: 117 Pulse Assessment Method: Automatic Cuff - Respirations Respiratory Rate: 16 Oxygen Delivery Method: Room Air O2 Sat by Pulse Oximetry: 97 - Blood Pressure Right Arm Blood Pressure: 124/74 Blood Pressure Mean: 90 Blood Pressure Source: Automatic Cuff Medical Screen Scoring - Assessment - Baby A Baseline FHR: 150 Heart Rate - NICHD Category: Category I (Normal) NST: Reactive Physician Notification - Physician Notified Physician Notified Date: 09/10/24 Physician Notified Time: 19:31 Physician: Ely Hector New Order Received: Yes (discharge home) - Notification Comment Comment: pt. has reactive NST, has felt baby move since present to triage, orders to discarge home Maternal Triage Index - Maternal Triage Index Presenting for scheduled procedure w/no complaint: No - Stat/Priority 1 Stat Priority 1: No - Urgent/Priority 2 Urgent Priority 2: Yes Provider Notified: Ely Hector Provider Notified Time: 19:31 Criteria Met for Priority 2: 38 weeks, decrease movement Disposition - Disposition OB Disposition: Discharge to home Discharge Date: 09/10/24 Discharge Time: 19:41 I agree with the RN Medical Screening Exam: Yes Physician's MSE Comment: I have neither seen nor examined the patient Case reviewed; plan agreed upon as documented in EMR&OBIX.: Yes Comments: I have neither seen nor examined the patient Diagnosis: MATERNAL CARE FOR PROBLEM, UNSP, THIRD * DO NOT USE *
== END 2024-09-10 19:41 | disposition home or self-care (01) ==
LOC: FBPOP 18:40
PROVIDERS: ATTEND Obstetrics & Gynecology
DX: O36.8190 Decreased fetal movements, unspecified trimester, not applicable or unspecified (principal); Z3A.38 38 weeks gestation of pregnancy; Z91.09 Other allergy status, other than to drugs and biological substances
CPT/HCPCS: 59025; G0463; 99213

== ENCOUNTER 2024-09-16 05:56 | Inpatient (IN) | payer OTHER ==
[2024-09-16] MEDS ORDERED: miSOPROStoL 200 MCG TAB PO PRN (06:17)
[2024-09-16] MEDS ORDERED: TRANEXAMIC 1,000 MG/100ML-NACL 1,000 MG in EMPTY BAG 1 BAG IV PRN (06:17)
[2024-09-16] MEDS ORDERED: CARBOPROST TROMETHAMINE 250 MCG/ML 1 ML AMP IM PRN (06:17)
[2024-09-16] MEDS ORDERED: OXYTOCIN 10 UNIT/ML 1 ML VIAL IM PRN (06:17)
[2024-09-16] MEDS ORDERED: METHYLERGONOVINE 0.2 MG/ML 1 ML AMP IM PRN (06:17)
[2024-09-16 06:23] LABS: Glucose,Whole Blood 118 mg/dL (70-110)
[2024-09-16] MEDS ORDERED: OXYTOCIN 30 UNITS/500 ML NS 30 UNIT in SALINE 1 500ML.BAG IV SCH (06:30)
[2024-09-16 06:33] LABS: Basophils # (A) 0.1 k/uL (0-0.2); Basophils % (A) 1 %; Eosinophils # (A) 0.1 k/uL (0-0.7); Eosinophils % (A) 1 %; HCT 33.5 % (34.0-46.0); Hypochromasia Slight; Lymphocytes # (A) 2.7 k/uL (1.0-4.8); Lymphocytes % (A) 24 %; MCV 75.9 fL (80.0-100.0); Mean Platelet Volume 8.6; Microcytosis Slight; Monocytes # (A) 0.5 k/uL (0-1.0); Monocytes % (A) 4 %; Neutrophils # (A) 7.7 k/uL (1.3-7.7); Neutrophils % (A) 69 %; Platelet Count 260 k/uL (150-450); RBC 4.41 m/uL (3.80-5.40); RDW 14.7 % (11.5-15.5); WBC 11.2 k/uL (3.8-10.6)
[2024-09-16] MEDS: CITRIC ACID-SODIUM CITRATE 15 ML CUP PO ONE (07:15)
[2024-09-16] MEDS: ceFAZolin 3 GM in SODIUM CHLORIDE 0.9% 100 ML IVPB ONE (07:15)
[2024-09-16] MEDS: LACTATED RINGERS 1,000 ML IV SCH ×2 (07:16→11:22)
[2024-09-16] MEDS ORDERED: ONDANSETRON 4 MG/2 ML VIAL ONE (08:08)
[2024-09-16] MEDS ORDERED: PHENYLEPHRINE 10 MG/ML VIAL ONE (08:08)
[2024-09-16] MEDS ORDERED: KETOROLAC 15 MG/ML 1 ML VIAL ONE (08:08)
[2024-09-16] MEDS ORDERED: OXYTOCIN 30 UNITS/500 ML NS BAG IV ONE (08:08)
[2024-09-16] MEDS ORDERED: MORPHINE SULFATE (PF) 0.3 MG/0.3 ML SYR ONE (08:08)
[2024-09-16] MEDS ORDERED: SIMETHICONE 80 MG CHEWABLE PO PRN (09:02)
[2024-09-16] MEDS ORDERED: diphenhydrAMINE 50 MG/ML 1 ML VIAL IVP PRN ×2 (09:02)
[2024-09-16] MEDS ORDERED: diphenhydrAMINE 25 MG CAP PO PRN (09:02)
[2024-09-16] MEDS ORDERED: NALOXONE 0.4 MG/ML 1 ML VIAL IV PRN (09:02)
[2024-09-16] MEDS ORDERED: METOCLOPRAMIDE 5 MG/ML 2 ML VIAL IVP PRN (09:02)
[2024-09-16] MEDS ORDERED: LANOLIN CREAM 1 GM TUBE TOPICAL PRN (09:02)
[2024-09-16] MEDS ORDERED: ZOLPIDEM 5 MG TAB PO PRN (09:02)
[2024-09-16] MEDS ORDERED: ONDANSETRON 4 MG/2 ML VIAL IVP PRN (09:02)
[2024-09-16] MEDS: ACETAMINOPHEN TAB 500 MG TAB PO SCH (11:21)
[2024-09-16] MEDS: diphenhydrAMINE 50 MG CAP PO PRN (11:21)
[2024-09-16] MEDS: KETOROLAC 15 MG/ML 1 ML VIAL IVP SCH (16:04)
--- NOTE | 2024-09-16 17:06 | P.HPOB ---
History of Present Illness H&P Date: 09/16/24 Chief Complaint: repeat low transverse with bilateral salpingectomy 24-year-old G3, P2 presents for repeat low-transverse and removal of fallopian tubes using LigaSure. Review of Systems All systems: negative Constitutional: Denies chills, Denies fever Eyes: denies blurred vision, denies pain Ears, nose, mouth and throat: Denies headache, Denies sore throat Cardiovascular: Denies chest pain, Denies shortness of breath Respiratory: Denies cough Gastrointestinal: Denies abdominal pain, Denies diarrhea, Denies nausea, Denies vomiting Genitourinary: Denies dysuria, Denies hematuria Musculoskeletal: Denies myalgias Integumentary: Denies pruritus, Denies rash Neurological: Denies numbness, Denies weakness Psychiatric: Denies anxiety, Denies depression Endocrine: Denies fatigue, Denies weight change Past Medical History Past Medical History: Asthma, GERD/Reflux Additional Past Medical History / Comment(s): allergies, feels skipping of heart beats at times. problems with hips and knees since 12 yrs old. increase in heartburn pain over the last year. Asthma has gotten better with age, GDM History of Any Multi-Drug Resistant Organisms: None Reported Past Surgical History: Section Additional Past Surgical History / Comment(s): 2 c sections. wisdom teeth re moved on bottom. Past Anesthesia/Blood Transfusion Reactions: No Reported Reaction Past Psychological History: Anxiety, Depression Smoking Status: Never smoker Past Alcohol Use History: None Reported Past Drug Use History: None Reported - Past Family History Sister(s) Family Medical History: Blood Disorder, Deep Vein Thrombosis (DVT) Additional Family Medical History / Comment(s): Patient's mother states her sister has a history of blood clots-specifics unknown. Medications and Allergies Home Medications Medication Instructions Recorded Confirmed Type Vit No.179/Iron/Folic 1 tab PO DAILY 06/10/24 09/16/24 History [ Tablet] Aspirin [Adult Low Dose Aspirin EC] 81 mg PO DAILY 08/22/24 09/16/24 History Allergies Allergy/AdvReac Type Severity Reaction Status Date / Time adhesive tape Allergy red itchy Verified 09/10/24 18:57 skin. Exam Osteopathic Statement: *. No significant issues noted on an osteopathic structural exam other than those noted in the History and Physical/Consult. Vital Signs Temp Pulse Resp BP Pulse Ox 09/16/24 13:11 16 09/16/24 11:11 93 18 115/71 97 09/16/24 10:56 93 18 114/64 95 09/16/24 10:41 100 18 115/63 95 09/16/24 10:26 97 16 126/69 96 09/16/24 10:11 95 18 126/66 96 09/16/24 09:56 93 16 105/74 96 09/16/24 09:40 98 18 126/59 95 09/16/24 09:26 104 H 18 138/78 96 09/16/24 09:11 97.5 F L 103 H 18 145/66 100 09/16/24 06:15 97.6 F 116 H 16 119/78 98 Intake and Output 09/16/24 09/16/24 09/16/24 06:59 14:59 22:59 Output Total 448 Balance -448 Output: Urine 200 Output, Quantitative 248 Blood Loss Other: Voiding Method Indwelling Catheter Weight 121.109 kg Heart: Regular rate and rhythm Lungs: Clear to auscultation bilaterally Abdomen: Soft, nontender Extremities: Negative Homans sign Results Result Diagrams: 09/16/24 06:17 Abnormal Lab Results - Last 24 Hours (Table) 09/16/24 09/16/24 Range/Units 06:17 06:21 WBC 11.2 H (3.8-10.6) k/uL Hgb 11.0 L (11.4-16.0) gm/dL Hct 33.5 L (34.0-46.0) % MCV 75.9 L (80.0-100.0) fL POC Glucose (mg/dL) 118 H (70-110) mg/dL Assessment and Plan (1) Previous section Current Visit: Yes Status: Acute Code(s): Z98.891 - HISTORY OF UTERINE SCAR FROM PREVIOUS SURGERY SNOMED Code(s): 845185740 (2) Family planning Current Visit: Yes Status: Acute Code(s): Z30.09 - ENCOUNTER FOR OTH GENERAL CNSL AND ADVICE ON CONTRACEPTION SNOMED Code(s): 747399529 (3) 39 weeks gestation of Current Visit: Yes Status: Acute Code(s): Z3A.39 - 39 WEEKS GESTATION OF SNOMED Code(s): 03099061 Plan: 1. Repeat low-transverse with bilateral salpingectomy using LigaSure
--- NOTE | 2024-09-16 17:09 | P.OP ---
Date of Procedure: 09/16/24 Preoperative Diagnosis: 1. Previous section 2. Family-planning 3. 39 weeks gestation Postoperative Diagnosis: Same Procedure(s) Performed: Repeat low-transverse with bilateral salpingectomy using LigaSure Anesthesia: spinal Surgeon: Eula Shoemaker Banana Carrier #1: Jr Poe Estimated Blood Loss (ml): 150 IV fluids (ml): 800 Urine output (ml): 200 Pathology: other (Bilateral fallopian tubes) Condition: stable Disposition: floor Operative Findings: Normal uterus, tubes, ovaries. Apgars 9, 9, weight 8 pounds 7 ounces of a viable female infant Description of Procedure: Patient was taken to the operating room where spinal anesthesia was found be adequate. She was prepped and draped in normal sterile fashion in dorsal supine position with a leftward tilt. Pfannenstiel skin incision was made the scalpel and carried through to the underlying layer of fascia with the scalpel. Fascia was incised in midline and carried bilaterally with the Dennis scissors. The superior aspect of the fascial incision was grasped with Beaver clamps elevated and the underlying rectus muscles dissected off with the Dennis's. Attention was then turned to inferior aspect of same incision which in a similar fashion was grasped tented up and the underlying rectus muscles dissected off with the Dennis's. The rectus muscles were the midline and the peritoneum was identified tented up and entered sharply with the scalpel. The incision was extended superiorly and inferiorly with good visualization of the bladder. The bladder blade was inserted and the vesicouterine peritoneum was incised the Metzenbaums then carried bilaterally and bladder flap created digitally. A low transverse incision was then made on the uterus with the scalpel. This was carried bilaterally and digital manner. Infant's head delivered atraumatically, nose and mouth bulb suctioned, cord clamped and cut, infant handed off to waiting nurses. Apgars 9,9, weight 8lbs. 7 oz. Placenta delivered manually, intact with three-vessel cord. The uterus is exteriorized and cleared of all clots and debris. The uterine incision was closed with 0 Vicryl in a running locked fashion. Both ovaries and tubes appeared normal. The right fallopian tube was grasped and the mesosalpinx was sealed and cut using the LigaSure along the fallopian tube to remove it. The left fallopian tube was then grasped and the LigaSure was used to seal and cut along the mesosalpinx to remove this fallopian tube. The uterus was placed back into the abdomen. The fascia was reapproximated using 0 Vicryl in a running fashion. The subcutaneous tissues closed with 3-0 Vicryl running fashion. The skin was closed shonda. Patient tolerated the procedure well, sponge and instrument counts were correct times 2 and she was taken to the recovery room in stable condition.
[2024-09-16] MEDS: SENNOSIDES-DOCUSATE SODIUM 1 EACH TAB PO SCH (20:11)
[2024-09-17 05:30] LABS: Basophils % (A) 0 %; Eosinophils # (A) 0.1 k/uL (0-0.7); Eosinophils % (A) 2 %; HCT 27.9 % (34.0-46.0); Hypochromasia Slight; Lymphocytes # (A) 2.5 k/uL (1.0-4.8); Lymphocytes % (A) 28 %; MCH 25.2 pg (25.0-35.0); MCHC 32.9 g/dL (31.0-37.0); MCV 76.7 fL (80.0-100.0); Mean Platelet Volume 9.5; Microcytosis Slight; Monocytes # (A) 0.4 k/uL (0-1.0); Monocytes % (A) 5 %; Neutrophils # (A) 5.6 k/uL (1.3-7.7); Neutrophils % (A) 64 %; Platelet Count 207 k/uL (150-450); RBC 3.64 m/uL (3.80-5.40); WBC 8.8 k/uL (3.8-10.6)
[2024-09-17 05:45] LABS: HGB 9.2 gm/dL (11.4-16.0)
[2024-09-17] MEDS: IBUPROFEN 800 MG TAB PO SCH (08:27)
--- NOTE | 2024-09-17 09:33 | P.PN ---
Progress Note - Text Progress Note Date: 09/17/24 (595) Anesthesia Postop day 1 Subjective: Status Post section with Duramorph. Patient seen and examined. Doing well without complaint. VAS 0. No nausea vomiting or pruritus. Denies fever. Gross lower extremity strength intact. Without apparent anesthetic complications. Objective: Vital signs reviewed Heart: Regular Rate Lungs: Good chest excursion Abdomen: Appears nondistended Assessment: Status post section with Duramorph postop day 1 Plan: 1. Continue current care with your medical management. Anticipated end to the duration of the Duramorph around surgery time today. You may see increased pain needs around this time. 2. This note was dictated using NEHP software. Please be advised there is a potential for misspellings or errors in denial resolution specialist.
--- NOTE | 2024-09-17 11:55 | P.PNOBGPC ---
Subjective - Subjective Principal diagnosis: S/P RLTCS with BS POD #1 Interval history: Seen and examined. Denies nausea, vomiting, chest pain, shortness of breath or calf pain. Patient reports: Reports appetite normal, Reports voiding normally, Reports pain well controlled, Reports ambulating normally : doing well Objective - Vital Signs Latest vital signs: Vital Signs Temp Pulse Resp BP 09/17/24 08:00 97.8 F 79 16 115/79 09/17/24 00:00 98.3 F 92 16 132/69 09/16/24 16:00 97.9 F 83 16 117/69 09/16/24 13:11 16 Intake and Output 09/16/24 09/17/24 09/17/24 22:59 06:59 14:59 Output Total 800 350 Balance -800 -350 Output: Urine 800 350 Uretheral ([place]) 600 Other: # Voids 1 2 - Exam Lungs: bilateral: normal Chest: Normal S1, Normal S2 Extremities: Present: normal Abdomen: Present: normal appearance, soft. Absent: distention, tenderness Incision: Present: normal, dry, intact Uterus: Present: normal, firm - Labs Labs: Abnormal Lab Results - Last 24 Hours (Table) 09/17/24 Range/Units 05:21 RBC 3.64 L (3.80-5.40) m/uL Hgb 9.2 L D (11.4-16.0) gm/dL Hct 27.9 L (34.0-46.0) % MCV 76.7 L (80.0-100.0) fL Assessment and Plan (1) Previous section Current Visit: Yes Status: Resolved Code(s): Z98.891 - HISTORY OF UTERINE SCAR FROM PREVIOUS SURGERY SNOMED Code(s): 915452195 (2) Family planning Current Visit: Yes Status: Resolved Code(s): Z30.09 - ENCOUNTER FOR OTH GENERAL CNSL AND ADVICE ON CONTRACEPTION SNOMED Code(s): 820243156 (3) 39 weeks gestation of Current Visit: Yes Status: Resolved Code(s): Z3A.39 - 39 WEEKS GESTATION OF SNOMED Code(s): 31853928 (4) Status post repeat low transverse section Current Visit: Yes Status: Acute Code(s): Z98.891 - HISTORY OF UTERINE SCAR FROM PREVIOUS SURGERY SNOMED Code(s): 634484492 Plan: 1. increase ambulation
[2024-09-18 08:15] VITALS: BP 125/80; PULSE 89; RESP 16; TEMP 97.7
--- NOTE | 2024-09-18 10:44 | P.PNOBGPC ---
Subjective - Subjective Principal diagnosis: S/P RLTCS with BS POD #2 Interval history: Pt seen and examined. Feeling very well. Denies N/V, F/C, CP, SOb and calf pain. Patient reports: Reports appetite normal, Reports voiding normally, Reports pain well controlled, Reports ambulating normally : doing well Objective - Vital Signs Latest vital signs: Vital Signs Temp Pulse Resp BP BP Pulse Ox 09/18/24 08:05 97.7 F 89 16 125/80 97 09/18/24 00:00 97.4 F L 111 H 15 123/82 97 09/17/24 15:53 98.0 F 85 16 125/73 Intake and Output 09/17/24 09/18/24 09/18/24 22:59 06:59 14:59 Intake Total 960 Balance 960 Intake: Oral 960 Other: Voiding Method Indwelling Catheter Indwelling Catheter - Exam Lungs: bilateral: normal Chest: Normal S1, Normal S2 Extremities: Present: normal Abdomen: Present: normal appearance, soft. Absent: distention, tenderness Incision: Present: normal, dry, intact Uterus: Present: normal, firm Assessment and Plan (1) Previous section Current Visit: Yes Status: Resolved Code(s): Z98.891 - HISTORY OF UTERINE SCAR FROM PREVIOUS SURGERY SNOMED Code(s): 186711734 (2) Family planning Current Visit: Yes Status: Resolved Code(s): Z30.09 - ENCOUNTER FOR OT GENERAL CNSL AND ADVICE ON CONTRACEPTION SNOMED Code(s): 377530346 (3) 39 weeks gestation of Current Visit: Yes Status: Resolved Code(s): Z3A.39 - 39 WEEKS GESTATION OF SNOMED Code(s): 93273884 (4) Status post repeat low transverse section Current Visit: Yes Status: Acute Code(s): Z98.891 - HISTORY OF UTERINE SCAR FROM PREVIOUS SURGERY SNOMED Code(s): 754386758 Plan: 1. cont po care
== END 2024-09-18 17:18 | disposition home or self-care (01) | DRG 539 ==
LOC: 4FBP 05:56
PROVIDERS: ADMIT Obstetrics & Gynecology; ATTEND Obstetrics & Gynecology
PROC: 0UB70ZZ Excision of Bilateral Fallopian Tubes, Open Approach (ICD-10-PCS; 2024-09-16)
PROC: 10D00Z1 Extraction of Products of Conception, Low, Open Approach (ICD-10-PCS; principal; 2024-09-16 08:00)
DX: O34.211 Maternal care for low transverse scar from previous cesarean delivery (principal); J45.909 Unspecified asthma, uncomplicated; F41.9 Anxiety disorder, unspecified; O99.344 Other mental disorders complicating childbirth; F32.A Depression, unspecified; O99.52 Diseases of the respiratory system complicating childbirth; Z37.0 Single live birth; Z3A.39 39 weeks gestation of pregnancy; Z79.82 Long term (current) use of aspirin; Z86.32 Personal history of gestational diabetes; Z91.048 Other nonmedicinal substance allergy status
CPT/HCPCS: 85025; 86850; 86900; 86901; 88302

== ENCOUNTER 2024-11-11 23:01 | Emergency (ER) | payer OTHER ==
[2024-11-12 00:06] LABS: Anisocytosis Slight; Basophils % (A) 0 %; Eosinophils # (A) 0.2 k/uL (0-0.7); Eosinophils % (A) 2 %; HCT 36.3 % (34.0-46.0); HGB 11.6 gm/dL (11.4-16.0); Lymphocytes % (A) 36 %; MCH 24.4 pg (25.0-35.0); MCHC 31.8 g/dL (31.0-37.0); MCV 76.8 fL (80.0-100.0); Mean Platelet Volume 7.8; Microcytosis Slight; Monocytes # (A) 0.3 k/uL (0-1.0); Monocytes % (A) 3 %; Neutrophils # (A) 4.7 k/uL (1.3-7.7); Neutrophils % (A) 57 %; Platelet Count 247 k/uL (150-450); RBC 4.73 m/uL (3.80-5.40); RDW 16.7 % (11.5-15.5); WBC 8.3 k/uL (3.8-10.6)
--- NOTE | 2024-11-12 00:09 | ED ---
Headache HPI - General Chief Complaint: Headache Stated Complaint: head pain Time Seen by Provider: 11/11/24 23:28 Source: patient, RN notes reviewed Mode of arrival: ambulatory Limitations: no limitations - History of Present Illness Initial Comments: This is a 24-year-old female who presents to the emergency department for a headache. States that right before arrival she was breast-feeding her infant. She developed sharp pain to the right side of her head and felt she was getting a headache. However, the pain then worsened and went down into her neck and she started to develop dizziness and felt ill. She has had headaches and migraines in the past, but states that she has never had anything that feels like this before. She has not taken anything for symptoms. States that the pain is continuing to get worse. MD Complaint: headache - Related Data Home Medications Medication Instructions Recorded Confirmed Vit No.179/Iron/Folic 1 tab PO DAILY 06/10/24 09/16/24 [ Tablet] Aspirin [Adult Low Dose Aspirin EC] 81 mg PO DAILY 08/22/24 09/16/24 Previous Rx's Medication Instructions Recorded Ibuprofen [Motrin] 800 mg PO Q8HR #30 tab 09/18/24 Ketorolac [Toradol] 10 mg PO Q6HR PRN #15 tab 11/12/24 Allergies Allergy/AdvReac Type Severity Reaction Status Date / Time adhesive tape Allergy red itchy Verified 11/11/24 23:09 skin. Review of Systems ROS Statement: Those systems with pertinent positive or pertinent negative responses have been documented in the HPI. ROS Other: All systems not noted in ROS Statement are negative. Past Medical History Past Medical History: Asthma, GERD/Reflux Additional Past Medical History / Comment(s): allergies, feels skipping of heart beats at times. problems with hips and knees since 12 yrs old. increase in heartburn pain over the last year. Asthma has gotten better with age, GDM History of Any Multi-Drug Resistant Organisms: None Reported Past Surgical History: Section Additional Past Surgical History / Comment(s): 2 c sections. wisdom teeth removed on bottom. Past Anesthesia/Blood Transfusion Reactions: No Reported Reaction Past Psychological History: Anxiety, Depression Smoking Status: Never smoker Past Alcohol Use History: None Reported Past Drug Use History: None Reported - Past Family History Sister(s) Family Medical History: Blood Disorder, Deep Vein Thrombosis (DVT) Additional Family Medical History / Comment(s): Patient's mother states her sister has a history of blood clots-specifics unknown. General Exam Limitations: no limitations General appearance: alert, in no apparent distress Head exam: Present: atraumatic, normocephalic, normal inspection Eye exam: Present: normal appearance, PERRL, EOMI. Absent: scleral icterus, conjunctival injection, periorbital swelling Respiratory exam: Present: normal lung sounds bilaterally. Absent: respiratory distress, wheezes, rales, rhonchi, stridor Cardiovascular Exam: Present: regular rate, normal rhythm, normal heart sounds. Absent: systolic murmur, diastolic murmur, rubs, gallop, clicks Neurological exam: Present: alert, oriented X3, CN II-XII intact Psychiatric exam: Present: normal affect, normal mood Skin exam: Present: warm, dry, intact, normal color. Absent: rash Course Vital Signs 11/11/24 11/12/24 23:06 01:57 Temperature 98.2 F 97.7 F Pulse Rate 110 H 85 Respiratory 20 16 Rate Blood Pressure 149/91 120/73 O2 Sat by Pulse 96 96 Oximetry Medical Decision Making - Medical Decision Making This is a 24-year-old female who presents to the emergency department for a headache. Was pt. sent in by a medical professional or institution? @ -No Did you speak to anyone other than the patient for history? @ -No Did you review nursing and triage notes? @ -Yes, and I agree, it is accurate with regards to the patient's symptoms. Were old charts reviewed? @ -No Differential Diagnosis? @ -Differential Headache: Migraine, tension, cluster, carbon monoxide, central venous thrombosis, pension karma temporal arteritis, acute closure glaucoma, intercranial hemorrhage, mastoiditis, sinusitis, head injury, this is not meant to be an all-inclusive list. EKG interpreted by me (3pts min.)? @ -Not obtained X-rays interpreted by me (1pt min.)? @ -Not obtained CT interpreted by me (1pt min.)? @ -CT scan of the brain obtained. My interpretation identifies no evidence of an acute intracranial hemorrhage. U/S interpreted by me (1pt. min.)? @ -Not obtained What testing was considered but not performed? (CT, X-rays, U/S, labs)? Why? @ -None What meds were considered but not given? Why? @ -None Did you discuss the management of the patient with other professionals? @ -No Did you reconcile home meds? @ -No Was smoking cessation discussed for >3mins.? @ -No Was critical care preformed (if so, how long)? @ -No Were there social determinants of health that impacted care today? How? (Homelessness, low income, unemployed, alcoholism, drug addiction, transportation, low edu. Level, literacy, decrease access to med. care, usp, rehab)? @ -No Was there de-escalation of care discussed even if they declined? (Discuss DNR or withdrawal of care, Hospice)? @ -No What co-morbidities impacted this encounter? (DM, HTN, Smoking, COPD, CAD, Cancer, CVA, Hep., AIDS, mental health diagnosis, sleep apnea, morbid obesity)? @ -None Was patient admitted / discharged? @ -Lab work unremarkable. CT scan of the brain and CTA of the head and neck obtained revealing no acute process. She was treated with a migraine cocktail consisting of IV fluids, Toradol, Decadron, Reglan, and Benadryl and essentially had resolution of symptoms afterwards. Toradol prescribed for any additional h eadaches. Otherwise advised follow-up with her PCP for reevaluation. Patient discharged home in stable condition. Case discussed with ED attending Dr. Olivares. Undiagnosed new problem with uncertain prognosis? @ -None Drug Therapy requiring intensive monitoring for toxicity (Heparin, Nitro, Insulin, Cardizem)? @ -None Were any procedures done? @ -None Diagnosis/symptom? @ -Headache Acute, or Chronic, or Acute on Chronic? @ -Acute Uncomplicated (without systemic symptoms) or Complicated (systemic symptoms)? @ -Uncomplicated Side effects of treatment? @ -None Exacerbation, Progression, or Severe Exacerbation] @ -Not applicable Poses a threat to life or bodily function? @ -No - Lab Data Result diagrams: 11/11/24 23:50 11/11/24 23:50 Lab Results 11/11/24 11/11/24 Range/Units 23:50 23:50 WBC 8.3 (3.8-10.6) k/uL RBC 4.73 (3.80-5.40) m/uL Hgb 11.6 (11.4-16.0) gm/dL Hct 36.3 (34.0-46.0) % MCV 76.8 L (80.0-100.0) fL MCH 24.4 L (25.0-35.0) pg MCHC 31.8 (31.0-37.0) g/dL RDW 16.7 H (11.5-15.5) % Plt Count 247 (150-450) k/uL MPV 7.8 Neutrophils % 57 % Lymphocytes % 36 % Monocytes % 3 % Eosinophils % 2 % Basophils % 0 % Neutrophils # 4.7 (1.3-7.7) k/uL Lymphocytes # 3.0 (1.0-4.8) k/uL Monocytes # 0.3 (0-1.0) k/uL Eosinophils # 0.2 (0-0.7) k/uL Basophils # 0.0 (0-0.2) k/uL Anisocytosis Slight Microcytosis Slight Sodium 138 (137-145) mmol/L Potassium 3.9 (3.5-5.1) mmol/L Chloride 103 (98-107) mmol/L Carbon Dioxide 27 (22-30) mmol/L Anion Gap 8 mmol/L BUN 14 (7-17) mg/dL Creatinine 0.79 (0.52-1.04) mg/dL Est GFR (CKD-EPI)AfAm >90 (>60 ml/min/1.73 sqM) Est GFR (CKD-EPI)NonAf >90 (>60 ml/min/1.73 sqM) Glucose 114 H (74-99) mg/dL Calcium 9.2 (8.4-10.2) mg/dL Magnesium 1.8 (1.6-2.3) mg/dL Total Bilirubin 0.2 (0.2-1.3) mg/dL AST 15 (14-36) U/L ALT 16 (4-34) U/L Alkaline Phosphatase 149 H (38-126) U/L C-Reactive Protein 1.5 H (<1.0) mg/dL Total Protein 6.6 (6.3-8.2) g/dL Albumin 3.9 (3.5-5.0) g/dL - Radiology Data Radiology results: report reviewed, image reviewed Disposition Clinical Impression: Headache Disposition: HOME SELF-CARE Instructions (If sedation given, give patient instructions): Acute Headache (ED) Additional Instructions: Return to the emergency department with any new, worsening, or concerning symptoms. Take the Toradol with Tylenol as needed for pain relief. If you choose to take the Toradol, do not take any other anti-inflammatories such as ibuprofen, take one or the other. Follow up with your primary care provider in 1-2 days. Prescriptions: Ketorolac [Toradol] 10 mg PO Q6HR PRN #15 tab PRN Reason: Pain Is patient prescribed a controlled substance at d/c from ED?: No Referrals: None,Stated [Primary Care Provider] - 1-2 days Time of Disposition: 03:25
[2024-11-12] MEDS: SODIUM CHLORIDE 0.9% 1,000 ML IV STA (00:15)
[2024-11-12] MEDS: diphenhydrAMINE 50 MG/ML 1 ML VIAL IVP STA (00:16)
[2024-11-12] MEDS: METOCLOPRAMIDE 5 MG/ML 2 ML VIAL IVP STA (00:16)
[2024-11-12] MEDS: DEXAMETHASONE SOD PHOSPHATE 10 MG/ML 1 ML VIAL IVP STA (00:16)
[2024-11-12] MEDS: ACETAMINOPHEN TAB 500 MG TAB PO STA (00:17)
--- NOTE | 2024-11-12 00:18 | CT ---
EXAMINATION TYPE: CT brain wo con DATE OF EXAM: 11/12/2024 12:12 AM COMPARISON: 10/13/2022. CLINICAL INDICATION: Female, 24 years old with history of Sudden headache, TECHNIQUE: Brain: Axial CT images of the brain were obtained with coronal and sagittal reformats created and rev iewed. Contrast used: None. Oral contrast used: None. CT DLP: 1128 mGycm, Automated exposure control for dose reduction was used. FINDINGS: Brain: Extra-axial spaces: No abnormal extra-axial fluid collections. Ventricular system: Within normal limits Cerebral parenchyma: No acute intraparenchymal hemorrhage or mass effect. The talbert-white junction is well differentiated. Cerebellum: Unremarkable. Mass effect: No evidence of midline shift. Intracranial vasculature: unremarkable Soft tissues: Normal. Calvarium/osseous structures: No depressed skull fracture. Paranasal sinuses and mastoid air cells: Mild scattered paranasal sinus disease. Visualized orbits: Orbital contents are intact. IMPRESSION: No acute intracranial process. [facility], , 11/12/2024 12:16 AM
[2024-11-12 00:58] LABS: ALT 16 U/L (4-34); AST 15 U/L (14-36); African American GFR (CKD) >90 (>60 ml/min/1.73 sqM); Albumin 3.9 g/dL (3.5-5.0); Alkaline Phosphatase 149 U/L (38-126); Anion Gap 8 mmol/L; Blood Urea Nitrogen 14 mg/dL (7-17); C Reactive Protein 1.5 mg/dL (<1.0); Calcium 9.2 mg/dL (8.4-10.2); Carbon Dioxide 27 mmol/L (22-30); Chloride 103 mmol/L (98-107); Glucose 114 mg/dL (74-99); Magnesium 1.8 mg/dL (1.6-2.3); Non-African American GFR(CKD) >90 (>60 ml/min/1.73 sqM); Potassium 3.9 mmol/L (3.5-5.1); Sodium 138 mmol/L (137-145); Total Bilirubin 0.2 mg/dL (0.2-1.3); Total Protein 6.6 g/dL (6.3-8.2)
[2024-11-12] MEDS: KETOROLAC 15 MG/ML 1 ML VIAL IVP STA (01:15)
[2024-11-12 01:57] VITALS: BP 120/73; PULSE 85; RESP 16; TEMP 97.7
--- NOTE | 2024-11-12 05:23 | CT ---
1641 images EXAM: CT Angiography Head With Intravenous Contrast CLINICAL HISTORY: Headache and neck pain TECHNIQUE: Axial computed tomographic angiography images of the head with intravenous contrast. CTDI is 49 mGy and DLP is 896.3 mGy-cm. This CT exam was performed using one or more of the following dose reduction techniques: automated exposure control, adjustment of the mA and/or kV according to patient size, and/or use of iterative reconstruction technique. MIP reconstructed images were created and reviewed. COMPARISON: Head CT from 10/13/2022 FINDINGS: Right internal carotid artery: No acute findings. Intracranial segment is patent with no significant stenosis. No aneurysm. Right anterior cerebral artery: Unremarkable. No occlusion or significant stenosis. No aneurysm. Right middle cerebral artery: Unremarkable. No occlusion or significant stenosis. No aneurysm. Right posterior cerebral artery: Unremarkable. No occlusion or significant stenosis. No aneurysm. Right vertebral artery: Unremarkable as visualized. Left internal carotid artery: No acute findings. Intracranial segment is patent with no significant stenosis. No aneurysm. Left anterior cerebral artery: Unremarkable. No occlusion or significant stenosis. No aneurysm. Left middle cerebral artery: Unremarkable. No occlusion or significant stenosis. No aneurysm. Left posterior cerebral artery: Unremarkable. No occlusion or significant stenosis. No aneurysm. Left vertebral artery: Unremarkable as visualized. Basilar artery: Unremarkable. No occlusion or significant stenosis. No aneurysm. IMPRESSION: Normal head CTA. EXAM: CT Angiography Neck With Intravenous Contrast CLINICAL HISTORY: Headache and neck pain TECHNIQUE: Routine carotid CT angiography protocol was performed with intravenous contrast. NASCET criteria using the distal ICAs for comparison were used for evaluation of stenoses. CTDI is 49 mGy and DLP is 896.3 mGy-cm. This CT exam was performed using one or more of the following dose reduction techniques: automated exposure control, adjustment of the mA and/or kV according to patient size, and/or use of iterative reconstruction technique. MIP reconstructed images were created and reviewed. COMPARISON: None. FINDINGS: VASCULATURE: Right common carotid artery: Unremarkable. No occlusion or significant stenosis. No dissection. Right internal carotid artery: Unremarkable. Extracranial segment is patent with no occlusion or significant stenosis. No dissection. Right external carotid artery: Unremarkable. No occlusion. Right vertebral artery: Unremarkable. No occlusion or significant stenosis. No dissection. Left common carotid artery: Unremarkable. No occlusion or significant stenosis. No dissection. Left internal carotid artery: Unremarkable. Extracranial segment is patent with no occlusion or significant stenosis. No dissection. Left external carotid artery: Unremarkable. No occlusion. Left vertebral artery: Unremarkable. No occlusion or significant stenosis. No dissection. NECK: Bones/joints: Unremarkable. No acute fracture. Soft tissues: Unremarkable. Lung apices: Clear. The tiny left tonsil stones. CAROTID STENOSIS REFERENCE USING NASCET CRITERIA: % ICA stenosis = (1 - narrowest ICA diameter/diameter of distal cervical ICA) x 100. Mild - <50% stenosis. Moderate - 50-69% stenosis. Severe - 70-94% stenosis. Near occlusion - 95-99% stenosis. Occluded - 100% stenosis. IMPRESSION: Negative CTA neck.
== END 2024-11-12 03:38 | disposition home or self-care (01) ==
LOC: EC 23:01
DX: R51.9 Headache, unspecified (principal); Z88.8 Allergy status to other drugs, medicaments and biological substances
CPT/HCPCS: 36415; 80053; 83735; 85025; 86140; 70496; 70450; 70498; 99284; 96374; 96375 ×3; 96361; J1200; J1100; J2765; J1885; Q9967; 96376; 99285